=== PATIENT | female | born 1975 | race Caucasian/White ===

== ENCOUNTER 2017-06-30 20:08 | Emergency (ER) | payer BC, SELFPAY ==
[2017-06-30 20:09] VITALS: BP 121/80; PULSE 86; RESP 20; TEMP 36.7; O2SAT 100; BMI 19.8
--- NOTE | 2017-06-30 20:39 | ED.VISSUMM ---
- ER Visit Summary Date of Service: 06/30/17 Chief Complaint: Headache History of Present Illness: The patient is a 41 F patient complains of headache symptoms behind the right eye. History of occipital migraines. Similar presentation. Symptoms for the past 2 days. No photophobia or phonophobia. No visual changes. No nausea or vomiting. Stridor Imitrex and Fioricet with no relief. Has been seen in the ED with relief of migraine cocktail. No fevers, no head injuries. No other complaints. Physical Examination: General: Alert and oriented ?3, no acute distress HEENT: Normocephalic, atraumatic. Moist mucosa membranes Neck: supple, nontender. No meningismus Cardiovascular: Regular rate and rhythm, no murmurs Respiratory: Normal breath sounds, symmetric, no distress Abdomen: Soft, nontender, nondistended Extremities: Nontender, no edema, pulses intact ?4 Neuro: no focal neurological deficits. Test Results: [] Emergency Department Course and Treatment: Patient no focal neurological deficits. Treated with migraine cocktail with good relief. Discharged with outpatient follow-up. Treatment Plan: [] Disposition: Discharge Impression: 1. Cephalgia This note was generated with [employer] dictation software. It may contain incorrect words, spelling, and punctuation that were not noted in review of the chart prior to signing ED Disposition - Plan for ED Patient: Disposition: Home or Assisted Living Chief Complaint: Headache Diagnosis: Cephalgia Instructions: ED Cephalgia Unspecified Referrals: Silvino Herron MD [Primary Care Provider] - 3-5 Days
[2017-06-30] MEDS: DiphenhydrAMINE 50 MG/ML Syringe 25 MG IV (21:05)
[2017-06-30] MEDS: Ketorolac 30 MG/ML Syringe IV (21:05)
[2017-06-30] MEDS: proCHLORPERazine 10 MG/2 ML Vial IV (21:05)
[2017-06-30 22:06] VITALS: BP 127/88; PULSE 76; RESP 16; O2SAT 98
== END 2017-06-30 22:07 | disposition home or self-care (01) ==
PROVIDERS: Emergency Provider Emergency Medicine; Family Provider Family Medicine; PCP Family Medicine
DX: R51 Headache (principal)
CPT/HCPCS: 96361; 96374; 96375; 99283; J7040; A4216

== ENCOUNTER 2017-10-31 06:33 | Emergency (ER) | payer BC, SELFPAY ==
[2017-10-31 06:34] VITALS: BP 130/101; PULSE 74; RESP 18; TEMP 36.5; O2SAT 100; BMI 18.9
--- NOTE | 2017-10-31 06:49 | ED.VISSUMM ---
- ER Visit Summary Date of Service: 10/31/17 Chief Complaint: Acute headache History of Present Illness: The patient is a 42 F history of migraine headaches. Patient states on Tuesday she got gradual onset of a headache associated with nausea vomiting. It is right-sided behind her right eye. This is classic for 1 of her migraines. She denies any falls or head trauma. She denies any LOC. She is not on any blood thinners. She denies any fever or sinus congestion. She currently is out of her migraine medications at home Imitrex and Fioricet. She states the insurance company will only allow her to get 70 filled per month. Physical Examination: Young female no acute distress. Vital signs are stable and afebrile. She does not look septic or toxic. H EENT exam unremarkable. Pupils round reactive light. She is photophobic. No facial droop. Normal speech. No signs of trauma to her head or face. Neck nontender. No lymphadenopathy. No meningismus. Able to touch chin to chest. Lungs clear to auscultation bilaterally. Heart regular rhythm no murmur. Chest wall nontender. Abdomen soft nontender. Moving all 4 extremities. Neurovascular intact. 5 out of 5 shell reprint operator strength. Dorsi plantar flexion intact. Neurologically she is awake she is alert she is answering questions. She has no focal motor or sensory deficits. NIH score is 0. She is acting appropriately. Back exam nontender. Skin unremarkable no rashes. Test Results: None Emergency Department Course and Treatment: Patient has a history of migraines this is classic for 1 of her migraine headaches. She will be treated with normal saline IV fluid bolus, Phenergan IV, Benadryl IV and Toradol IV. This has worked for her in the past. Treatment Plan: Fluids and rest. Disposition: Discharge Impression: Acute cephalgia with a history of migraines This note was generated with [employer] dictation software. It may contain incorrect words, spelling, and punctuation that were not noted in review of the chart prior to signing ED Disposition - Plan for ED Patient: Chief Complaint: Headache Referrals: Silvino Herron MD [Primary Care Provider] -
--- NOTE | 2017-10-31 06:52 | ED.DCSUM_ITS ---
- ER Visit Summary Date of Service: 10/31/17 Chief Complaint: Acute headache History of Present Illness: The patient is a 42 F history of migraine headaches. Patient states on Tuesday she got gradual onset of a headache associated with nausea vomiting. It is right-sided behind her right eye. This is classic for 1 of her migraines. She denies any falls or head trauma. She denies any LOC. She is not on any blood thinners. She denies any fever or sinus congestion. She currently is out of her migraine medications at home Imitrex and Fioricet. She states the insurance company will only allow her to get 70 filled per month. Physical Examination: Young female no acute distress. Vital signs are stable and afebrile. She does not look septic or toxic. H EENT exam unremarkable. Pupils round reactive light. She is photophobic. No facial droop. Normal speech. No signs of trauma to her head or face. Neck nontender. No lymphadenopathy. No meningismus. Able to touch chin to chest. Lungs clear to auscultation bilaterally. Heart regular rhythm no murmur. Chest wall nontender. Abdomen soft nontender. Moving all 4 extremities. Neurovascular intact. 5 out of 5 coverer strength. Dorsi plantar flexion intact. Neurologically she is awake she is alert she is answering questions. She has no focal motor or sensory deficits. NIH score is 0. She is acting appropriately. Back exam nontender. Skin unremarkable no rashes. Test Results: None Emergency Department Course and Treatment: Patient has a history of migraines this is classic for 1 of her migraine headaches. She will be treated with normal saline IV fluid bolus, Phenergan IV, Benadryl IV and Toradol IV. This has worked for her in the past. Treatment Plan: Fluids and rest. Disposition: Discharge Impression: Acute cephalgia with a history of migraines This note was generated with [employer] dictation software. It may contain incorrect words, spelling, and punctuation that were not noted in review of the chart prior to signing ED Disposition - Plan for ED Patient: Chief Complaint: Headache Referrals: Silvino Herron MD [Primary Care Provider] -
--- NOTE | 2017-10-31 06:52 | ED.DEP ---
ED Disposition - Plan for ED Patient: Disposition: Home or Assisted Living Chief Complaint: Headache Instructions: ED Headache Migraine Referrals: Silvino Herron MD [Primary Care Provider] - As Needed Additional Instructions: Plenty of fluids and rest. Tylenol and/or Motrin for your headache. Refill your migraine medication prescriptions. Return if feeling worse.
[2017-10-31] MEDS: DiphenhydrAMINE 50 MG/ML Syringe 25 MG IV (06:55)
[2017-10-31] MEDS: proMETHazine 25 MG/ML Syringe 12.5 MG IV (06:55)
[2017-10-31] MEDS: Ketorolac 30 MG/ML Syringe IV (06:56)
[2017-10-31] MEDS: 0.9% Normal Saline 1,000 ML 1000 ML IV (06:56)
[2017-10-31 07:36] VITALS: BP 122/83; PULSE 61; RESP 16; O2SAT 100
== END 2017-10-31 07:45 | disposition home or self-care (01) ==
PROVIDERS: Emergency Provider Emergency Medicine; Family Provider Family Medicine; PCP Family Medicine
DX: G43.909 Migraine, unspecified, not intractable, without status migrainosus (principal)
CPT/HCPCS: 96361; 96374; 96375; 99283; J7030

== ENCOUNTER 2017-11-15 19:37 | Emergency (ER) | payer BC, OTHER, SELFPAY ==
[2017-11-15 19:38] VITALS: BP 123/69; PULSE 97; RESP 18; TEMP 37.1; O2SAT 97; BMI 18.9
--- NOTE | 2017-11-15 20:01 | ED.DCSUM_ITS ---
- ER Visit Summary Date of Service: 11/15/17 Chief Complaint: Pelvic pain secondary to left superior pubic rami fracture History of Present Illness: The patient is a 42 F who fell at work. She was seen at [facility] and diagnosed with a superior left pubic ramus fracture. She was discharged home with prescription for Naprosyn and crutches. She states the Naprosyn is not helping control her pain. She denies any paresthesia, anesthesia motors. She has no other complaints. She is requesting something to control her pain Physical Examination: Vital signs unremarkable. Patient appears uncomfortable. There is pain palpation left side of the pelvis. The pelvis is stable. Abdomen is soft nontender. DP and PT pulses are palpable left lower extremity. Movement of the left lower extremity causes discomfort in the inguinal area. Test Results: None Emergency Department Course and Treatment: Patient was treated with 4 mg of Zofran IV push and 6 mg of morphine IV push. She was reassessed. Based on medication required to control her pain will prescribe morphine IR. Treatment Plan: Opiate analgesia to control pain secondary to left superior pubic ramus fracture. Patient reports marked improvement after 6 mg of morphine. She was discharged home with prescription for morphine IR. She was told to take the Naprosyn that she was prescribed from the other facility. Disposition: Discharge to home with spouse in stable and improved condition Impression: Pelvic pain secondary to left superior pubic rami fracture This note was generated with [employer] dictation software. It may contain incorrect words, spelling, and punctuation that were not noted in review of the chart prior to signing ED Disposition - Plan for ED Patient: Disposition: Home or Assisted Living Chief Complaint: Lower Extremity Injury Instructions: ED Fx Pelvis Prescriptions: Morphine [Morphine IR] 15 mg PO Q6H PRN PRN 5 Days #20 tablet PRN Reason: pelvic pain Referrals: Silvino Herron MD [Primary Care Provider] - As Needed
[2017-11-15] MEDS: Ondansetron 4 MG/2 ML Vial IV (20:07)
[2017-11-15] MEDS: morphine 8 MG/ML Syringe 6 MG IV (20:08)
[2017-11-15 21:08] VITALS: BP 112/78; PULSE 76; RESP 17; O2SAT 98
--- NOTE | 2017-11-15 21:24 | ED.RN ---
medication sent to [facility] to be picked up. They care currently closed. Order given for 1 tablet home pack at this time
[2017-11-15] MEDS: oxyCODONE 5 MG Tablet 10 MG PO (21:29)
== END 2017-11-15 21:08 | disposition home or self-care (01) ==
PROVIDERS: Emergency Provider Emergency Medicine; Family Provider Family Medicine; PCP Family Medicine
DX: S32.512A Fracture of superior rim of left pubis, initial encounter for closed fracture (principal); W19.XXXA Unspecified fall, initial encounter; Y93.9 Activity, unspecified; Y92.9 Unspecified place or not applicable; Y99.0 Civilian activity done for income or pay
CPT/HCPCS: 96374; 96375; 99283; A4216; J2405

== ENCOUNTER → 2018-01-19 12:23 | Outpatient (CLI) | payer BC, SELFPAY ==
--- NOTE | 2018-01-19 12:25 | BI_ITS ---
MAMMOGRAPHY - BILATERAL SCREENING REASON FOR EXAM: Female, 42 years old. Routine annual screening examination. PERTINENT HISTORY: Non-contributory. TECHNIQUE: Digital bilateral breast remi (3D mammographic acquisition) in the CC and MLO projections. 2-D mediolateral oblique (MLO) and craniocaudad (CC) views of both breasts were obtained. CAD: Full Field Digital Mammography with Computer Added Detection was performed. COMPARISON: Comparison is made with prior study dated November 18, 2016. FINDINGS: Breast Composition: The breasts are heterogeneously dense, which may obscure small masses. There are no dominant masses or suspicious calcifications. No other significant abnormalities are identified. There has been no significant change since the prior study. BI/SCREENING MAMM (CAD), BILAT IMPRESSION: Stable bilateral screening mammogram. Yearly follow-up mammogram recommended. (A) ASSESSMENT CATEGORY: BIRADS Category 1: Negative. A letter regarding these results will be sent to the patient by the facility within 30 days. Approximately 10% of breast cancers are not detected by mammography. A normal mammogram should not delay biopsy of a clinically suspicious abnormality. [id number] Electronically Signed: Brian Mujica MD at 15:40 EDT Tel [phone], Service support ,
== END ==
PROVIDERS: Family Provider Family Medicine; PCP Family Medicine; Visit Provider Obstetrics & Gynecology
DX: Z12.31 Encounter for screening mammogram for malignant neoplasm of breast (principal)
CPT/HCPCS: 77063; 77067

== ENCOUNTER → 2018-01-30 13:08 | Outpatient (CLI) | payer BC, SELFPAY ==
[2018-01-30 13:41] LABS: Hematocrit 38.9 % (37-47); Mean Corp Hgb Conc 33.4 g/gl (32-36); Mean Corpuscular Hgb 30.2 pg (27.0-32.0); Mean Corpuscular Volume 90.5 fL (81-99); Mean Platelet Vol. 9.4 fl (6.2-12.0); Platelet Count 286 K/mm3 (150-450); RBC Distribution Width CV 12.6 % (11.6-14.6); Scan Indicated on CBC? Y/N NO; White Blood Count 3.3 K/mm3 (4.4-11.0)
[2018-01-30 13:57] LABS: Estradiol 235.5 pg/mL; Free T3 3.3 pg/mL (2.18-3.98); T4 Free Direct 0.98 ng/dL (0.76-1.46); Thyroid Stim Hormone (TSH) 0.67 uIU/mL (0.358-3.74)
[2018-01-30 13:59] LABS: Progesterone Level 0.07 ng/mL (See Comment)
[2018-01-30 14:15] LABS: Hemoglobin A1c 5.1 % (4.2-6.3)
[2018-01-30 16:51] LABS: Chlamydia Trachomatis by PCR Negative (Negative); Neisserai gonorrhoeae by PCR Negative (Negative); Probe Check PASS; Sample Adequacy Control PASS; Specimen Processing Control PASS
[2018-02-01 11:59] LABS: HPV Reflexed? NOT INDICATED
== END ==
PROVIDERS: Visit Provider Obstetrics & Gynecology
DX: Z12.4 Encounter for screening for malignant neoplasm of cervix (principal); Z11.3 Encounter for screening for infections with a predominantly sexual mode of transmission
CPT/HCPCS: 82670; 83036; 84144; 84403; 84439; 84443; 84481; 85027; 87491; 87591; 88175; G0145

== ENCOUNTER → 2018-01-30 18:06 | Outpatient (CLI) | payer BC, SELFPAY ==
--- NOTE | 2018-01-30 18:08 | US_ITS ---
STUDY: ULTRASOUND OF THE FEMALE PELVIS - COMPLETE REASON FOR EXAM: Female, 42 years old. Irregular menses x 3 months. History of section. LMP: January 08, 2018. TECHNIQUE: Transabdominal and Transvaginal. The patient was not prepped, so there was very limited visualization of the pelvic structures on transabdominal imaging. As such, endovaginal scanning was employed. TECHNICAL QUALITY: Adequate. COMPARISON: Pelvic ultrasound May 14, 2015. FINDINGS: The uterus is anteverted and is in a midline position. The uterus measures 7.4 x 5.3 x 3.8 cm. Normal uterine cervix. The endometrium measures 5 mm in thickness, and is hyperechoic. 2 rounded, incompletely defined heterogeneous lesions consistent with fibroids are seen in the uterine fundus, abutting or potentially extending into the upper endometrial cavity. At the midline, the fibroid is 13 x 13 x 12 mm. Another, to the left, is 17 x 16 x 17 mm. I.U.D. - The patient does not have an I.U.D. The right ovary is visualized. The right ovary measures 3.6 x 2.0 x 1.9 cm. There is a single subcentimeter follicle of the right ovary without a dominant cyst. There is no visualized right adnexal mass or complex lesion. There is normal arterial and normal venous vascularity. The left ovary is visualized. The left ovary measures 3.8 x 2.5 x 1.6 cm. There are a few follicles of the left ovary, including a dominant 1.5 x 1.4 x 1.1 cm follicular cyst. There is no visualized left adnexal mass or complex lesion. There is normal arterial and normal venous vascularity. There is no fluid in the cul-de-sac. Polycystic ovary disease: No. US/Transvaginal Non- IMPRESSION: 1. 2 fundal uterine fibroids again seen abutting, if not extending into the upper endometrial cavity. The endometrium is otherwise unremarkable. 2. Follicular cysts in the ovaries. A 1.5 cm dominant follicle is noted on the left. Electronically Signed: Kin Carbajal MD at 19:17 EDT , Service support ,
== END ==
PROVIDERS: Visit Provider Obstetrics & Gynecology
DX: D25.9 Leiomyoma of uterus, unspecified (principal); N83.02 Follicular cyst of left ovary; N83.01 Follicular cyst of right ovary; N93.8 Other specified abnormal uterine and vaginal bleeding; R10.2 Pelvic and perineal pain
CPT/HCPCS: 76830; 93976

== ENCOUNTER → 2018-04-14 12:27 | Outpatient (CLI) | payer SELFPAY ==
[2018-04-14 13:54] LABS: Estradiol 58.3 pg/mL
[2018-04-14 14:19] LABS: Progesterone Level 19.53 ng/mL (See Comment)
--- OUTSIDE RECORDS SUMMARY | 2018-05-31 07:05 | XMS RPT_ITS ---
:1975 Author Organization OHIP Care Team Providers Name Role Phone Jacinda Barrow Attending Unavailable Jacinda Barrow Referring Unavailable Primay Care Physicia, No Primary Care Unavailable Silvino Herron Primary Care Unavailable Jonathan Mittal Attending Unavailable Silvino Herron Primary Care Unavailable Aleksandar Mendenhall Attending Unavailable Gopal, Silvino Primary Care Unavailable Golden, Claus Attending Unavailable Jacinda Barrow Attending Unavailable Gopal, Silvino Primary Care Unavailable Jacinda Barrow Attending Unavailable Jacinda Barrow Attending Unavailable Primay Care Physicia, No Primary Care Unavailable Ruth Gabriel Attending Unavailable Gopal, Silvino A Primary Care Unavailable TRUONG, CARLOS Attending Unavailable TRUONG, CARLOS Primary Care Unavailable ALEXI, CARLOS Primary Care Unavailable HILARIO RUSSO MD Attending Unavailable PROBLEMS PROBLEMS DATE TYPE CONDITION / ATTENDING STATUS SOURCE CODE 01/17/2018 Admitting Unknown / [facility] Repository 11/15/2017 Unknown S32.512A - Golden, Claus Active [facility] left pubis, Repository initial encounter for closed fracture / S32.512A(ICD-10 ) PROCEDURES PROCEDURES No Procedure Records FoundRESULTS RESULTS ESTRADIOL Collected: 04/14/2018 Status: F Source: [place] 12:33 PM [facility] REPOSITORY TYPE CODE TESTS RESULT OUT OF RANGE REFERENCE UNITS LAB L3300.1750 pg/mL Normal ESTRADIOL 58.3 Result Comment: NORMAL REFERENCE RANGES FEMALE FOLLICULAR 21.4 - 164.8 pg/mL MID-CYCLE PEAK 49.9 - 367.2 pg/mL LUTEAL 40.2 - 259.0 pg/mL POST-MENOPAUSAL ON MHT <11.0 - 462.1 pg/mL NOT ON MHT <11.0 - 58.3 pg/mL MALE <11.0 - 52.5 pg/mL NOTE: [facility] HAS CONFIRMED THE DRUG FULVETRANT (FASLODEX) MAY CAUSE FALSELY ELEVATED ESTRADIOL RESULTS WHEN USING THIS TEST METHOD. IF PATIENT IS TAKING FULVESTRANT AN ALTERNATIVE METHOD SHOULD BE USED TO DETERMINE ESTRADIOL CONCENTRATION. Performed By: #### L3300.1750 #### [facility] [address] [place], [place], [address] PROGESTERONE LEVEL Collected: 04/14/2018 Status: F Source: [place] 12:33 PM [facility] REPOSITORY TYPE CODE TESTS RESULT OUT OF REFERENCE UNITS RANGE LAB L509.4001 See Comment ng/mL Progesterone Normal 19.53 Result Comment: Progesterone Reference Table: UNITS Female: Follicular 0.15 - 1.40 ng/mL Luteal 3.34 - 25.56 ng/mL Mid-luteal 4.44 - 28.03 ng/mL Postmenopausal 0.0 - 0.73 ng/mL : 1st Trimester 11.22 - 90.00 ng/mL 2nd Trimester 25.55 - 89.40 ng/mL 3rd Trimester 48.40 -422.50 ng/mL Performed By: #### L509.4001 #### [facility] [address] [place], [address] TRANSVAGINAL Observed: 01/30/2018 Status: F Source: [place] NON- 6:09 PM [facility] REPOSITORY [facility] Imaging Services [address] [place] [address] Transvaginal Non- MR#: [id number] Acct: [id number] Name: FATIMAH DOLL Rep #: [id number] : 1975 F 42 From: Fuad Carbajal MD PCP: Care Physician, No Primary Status: REG CLI Study: Transvaginal Non- Date of Exam: 01/30/18 Exam# [id number] Ordering Dr: Jacinda Barrow MD STUDY: ULTRASOUND OF THE FEMALE PELVIS - COMPLETE REASON FOR EXAM: Female, 42 years old. Irregular menses x 3 months. History of section. LMP: January 08, 2018. TECHNIQUE: Transabdominal and Transvaginal. The patient was not prepped, so there was very limited visualization of the pelvic structures on transabdominal imaging. As such, endovaginal scanning was employed. TECHNICAL QUALITY: Adequate. COMPARISON: Pelvic ultrasound May 14, 2015. FINDINGS: The uterus is anteverted and is in a midline position. The uterus measures 7.4 x 5.3 x 3.8 cm. Normal uterine cervix. The endometrium measures 5 mm in thickness, and is hyperechoic. 2 rounded, incompletely defined heterogeneous lesions consistent with fibroids are seen in the uterine fundus, abutting or potentially extending into the upper endometrial cavity. At the midline, the fibroid is 13 x 13 x 12 mm. Another, to the left, is 17 x 16 x 17 mm. I.U.D. - The patient does not have an I.U.D. The right ovary is visualized. The right ovary measures 3.6 x 2.0 x 1.9 cm. There is a single subcentimeter follicle of the right ovary without a dominant cyst. There is no visualized right adnexal mass or complex lesion. There is normal arterial and normal venous vascularity. The left ovary is visualized. The left ovary measures 3.8 x 2.5 x 1.6 cm. There are a few follicles of the left ovary, including a dominant 1.5 x 1.4 x 1.1 cm follicular cyst. There is no visualized left adnexal mass or complex lesion. There is normal arterial and normal venous vascularity. There is no fluid in the cul-de-sac. Polycystic ovary disease: No. US/Transvaginal Non- IMPRESSION: 1. 2 fundal uterine fibroids again seen abutting, if not extending into the upper endometrial cavity. The endometrium is otherwise unremarkable. 2. Follicular cysts in the ovaries. A 1.5 cm dominant follicle is noted on the left. Electronically Signed: Kin Carbajal MD at 19:17 EDT , Service support , CC: No Primary Care Physician; Jacinda Barrow MD Carpentry Teacher: Signed CBC-COMPLETE BLOOD CNT Collected: 01/30/2018 Status: F Source: [place] NO DIFF 12:30 PM [facility] REPOSITORY TYPE CODE TESTS RESULT OUT OF RANGE REFERENCE UNITS LAB L100.1000 4.4-11.0 K/mm3 Low WBC 3.3 LAB L100.1200 4.2-5.4 M/mm3 Normal RBC 4.30 LAB L100.1300 12.0-15.0 g/dl Normal HGB 13.0 LAB L100.1400 37-47 % Normal HCT 38.9 LAB L100.1500 81-99 fL Normal MCV 90.5 LAB L100.1600 27.0-32.0 pg Normal MCH 30.2 LAB L100.1700 32-36 g/gl Normal MCHC 33.4 LAB L100.1810 11.6-14.6 % Normal RDW CV 12.6 LAB L100.1820 35.1-43.9 fl Normal RDW SD 41.0 LAB L100.1900 150-450 K/mm3 Normal PLT 286 LAB L100.2000 6.2-12.0 fl Normal MPV 9.4 Performed By: #### L100.0500 #### [facility] [address] [place], [address] FREE T3 Collected: 01/30/2018 Status: F Source: [place] 12:30 PM [facility] REPOSITORY TYPE CODE TESTS RESULT OUT OF RANGE REFERENCE UNITS LAB L501.86229 2.18-3.98 pg/mL Normal FREE T3 3.3 Performed By: #### L501.52995, L501.9520, L506.0400, L3300.1750 #### [facility] [address] [place], [place], [id number] THYROID STIM HORMONE Collected: 01/30/2018 Status: F Source: [place] (TSH) 12:30 PM [facility] REPOSITORY TYPE CODE TESTS RESULT OUT OF RANGE REFERENCE UNITS LAB L501.9520 0.358-3.74 uIU/mL Normal TSH 0.67 Performed By: #### L501.97464, L501.9520, L506.0400, L3300.1750 #### [facility] [address] [place], [address] T4 FREE DIRECT Collected: 01/30/2018 Status: F Source: [place] 12:30 PM [facility] REPOSITORY TYPE CODE TESTS RESULT OUT OF RANGE REFERENCE UNITS LAB L506.0400 0.76-1.46 ng/dL Normal T4 FREE 0.98 DIRECT Performed By: #### L501.22269, L501.9520, L506.0400, L3300.1750 #### [facility] [address] [place], [address] ESTRADIOL Collected: 01/30/2018 Status: F Source: [place] 12:30 PM [facility] REPOSITORY TYPE CODE TESTS RESULT OUT OF RANGE REFERENCE UNITS LAB L3300.1750 pg/mL Normal ESTRADIOL 235.5 Result Comment: NORMAL REFERENCE RANGES FEMALE FOLLICULAR 21.4 - 164.8 pg/mL MID-CYCLE PEAK 49.9 - 367.2 pg/mL LUTEAL 40.2 - 259.0 pg/mL POST-MENOPAUSAL ON MHT <11.0 - 462.1 pg/mL NOT ON MHT <11.0 - 58.3 pg/mL MALE <11.0 - 52.5 pg/mL NOTE: [facility] HAS CONFIRMED THE DRUG FULVETRANT (FASLODEX) MAY CAUSE FALSELY ELEVATED ESTRADIOL RESULTS WHEN USING THIS TEST METHOD. IF PATIENT IS TAKING FULVESTRANT AN ALTERNATIVE METHOD SHOULD BE USED TO DETERMINE ESTRADIOL CONCENTRATION. Performed By: #### L501.97390, L501.9520, L506.0400, L3300.1750 #### [facility] [address] [place], [place], [address] TESTOSTERONE, SERUM TOTAL Collected: 01/30/2018 Status: F Source: [place] 12:30 PM [facility] REPOSITORY TYPE CODE TESTS RESULT OUT OF REFERENCE UNITS RANGE LAB L509.3000 ng/dL Testosterone Normal 11.37 Result Comment: NORMAL REFERENCE RANGES MALE AGE <50 123.06 - 813.86 ng/dL MALE AGE >50 89.98 - 780.10 ng/dL FEMALE PREMENOPAUSE AGE 21 - 60 9.01 - 47.94 ng/dL FEMALE POSTMENOPAUSE AGE 45 - 89 <7.00 - 45.62 ng/dL REFERENCE RANGE AND METHODOLOGY CHANGED 04/20/2017 Performed By: #### L509.3000, L509.4001 #### [facility] [address] [place], [address] PROGESTERONE LEVEL Collected: 01/30/2018 Status: F Source: [place] 12:30 PM [facility] REPOSITORY TYPE CODE TESTS RESULT OUT OF REFERENCE UNITS RANGE LAB L509.4001 See Comment ng/mL Progesterone Normal 0.07 Result Comment: Progesterone Reference Table: UNITS Female: Follicular 0.15 - 1.40 ng/mL Luteal 3.34 - 25.56 ng/mL Mid-luteal 4.44 - 28.03 ng/mL Postmenopausal 0.0 - 0.73 ng/mL : 1st Trimester 11.22 - 90.00 ng/mL 2nd Trimester 25.55 - 89.40 ng/mL 3rd Trimester 48.40 -422.50 ng/mL Performed By: #### L509.3000, L509.4001 #### [facility] [address] [place], [address] HEMOGLOBIN A1C Collected: 01/30/2018 Status: F Source: [place] 12:30 PM [facility] REPOSITORY TYPE CODE TESTS RESULT OUT OF RANGE REFERENCE UNITS LAB L501.9985 4.2-6.3 % Normal HGB A1C 5.1 Performed By: #### L501.9985 #### [facility] [address] [place], [address] CT/NG WCH BY PCR Collected: 01/30/2018 Status: F Source: [place] 12:00 PM [facility] REPOSITORY TYPE CODE TESTS RESULT OUT OF RANGE REFERENCE UNITS LAB L8200.2100 Negative Normal Chlam Negative Trac PCR LAB L8200.2200 Negative Normal NG by Negative PCR Performed By: #### L8200.2000 #### [facility] [address] [place], [address] PAP I-G W/RFX HRHPV Collected: 01/30/2018 Status: F Source: [place] 12:00 PM [facility] REPOSITORY Order Comment: CYTOLOGY INFORMATION: - CLINICAL INFORMATION: - DATE LMP/MENOPAUSE: 01/08/2018 LMP - COLLECTION VIAL: Thin Prep Vial - SMALL ANIMAL CARETAKER SOURCE: CERVICAL/ENDOCERVICAL - COLLECTION TECHNIQUE: BRUSH/SPATULA Specimen Comment: [id number] Specimen Comment: Source.............Cervix Specimen Comment: LMP / Prev Treat...[id number] Specimen Comment: No. of containers..01 ThinPrep Vial TYPE CODE TESTS RESULT OUT OF RANGE REFERENCE UNITS LAB L7400.0800 . Normal DIAGN Comment Result Comment: NEGATIVE FOR INTRAEPITHELIAL LESION AND MALIGNANCY. LAB L7400.0900 . Normal ADEQ Comment Result Comment: Satisfactory for evaluation. No endocervical component is identified. LAB L7400.1400 . Normal PERFORM Comment Result Comment: Aniyah Collins Dubbing Machine Operator (ASCP) LAB L7400.8793 . Normal TEST METHOD Comment Result Comment: This liquid based ThinPrep(R) pap test was screened with the use of an image guided system. LAB L7400.2600 . Normal . COMM LAB L7400.2700 . Normal PAPSMR Comment Result Comment: The Pap smear is a screening test designed to aid in the detection of premalignant and malignant conditions of the uterine cervix. It is not a diagnostic procedure and should not be used as the sole means of detecting cervical cancer. Both false-positive and false-negative reports do occur. LAB L7400.2800 . Normal HPV RFLX Comment Result Comment: The HPV DNA reflex criteria were not met with this specimen result therefore, no HPV testing was performed. Performed at: - [facility] [id number] [employer] Tank Erector: Estephania Naylor MD, Phone: [phone] Performed By: #### L7400.0350 #### [facility] (refer to report for specific site) refer to report for address and phone number SCREENING MAMM (CAD), Observed: 01/19/2018 Status: F Source: [facility] 12:25 PM [facility] REPOSITORY [facility] Imaging Services [address] [place] [address] SCREENING MAMM (CAD), [facility] MR#: [id number] Acct: [id number] Name: FATIMAH DOLL Rep #: [id number] : 1975 F 42 From: Brian Mujica MD PCP: Silvino Herron MD Status: [facility] Study: SCREENING MAMM (CAD), BILAT Date of Exam: 01/19/18 Exam# [id number] Ordering Dr: Jacinda Barrow MD MAMMOGRAPHY - BILATERAL SCREENING REASON FOR EXAM: Female, 42 years old. Routine annual screening examination. PERTINENT HISTORY: Non-contributory. TECHNIQUE: Digital bilateral breast remi (3D mammographic acquisition) in the CC and MLO projections. 2-D mediolateral oblique (MLO) and craniocaudad (CC) views of both breasts were obtained. CAD: Full Field Digital Mammography with Computer Added Detection was performed. COMPARISON: Comparison is made with prior study dated November 18, 2016. FINDINGS: Breast Composition: The breasts are heterogeneously dense, which may obscure small masses. There are no dominant masses or suspicious calcifications. No other significant abnormalities are identified. There has been no significant change since the prior study. BI/SCREENING MAMM (CAD), BILAT IMPRESSION: Stable bilateral screening mammogram. Yearly follow-up mammogram recommended. (A) ASSESSMENT CATEGORY: BIRADS Category 1: Negative. A letter regarding these results will be sent to the patient by the facility within 30 days. Approximately 10% of breast cancers are not detected by mammography. A normal mammogram should not delay biopsy of a clinically suspicious abnormality. [id number] Electronically Signed: Brian Mujica MD at 15:40 EDT Tel [phone], Service support , CC: Jacinda Barrow MD; Silvino Herron MD Carpentry Teacher: Signed EMERGENCY DEPARTMENT Observed: 11/15/2017 Status: F Source: [place] SUMMARY 8:57 PM [facility] REPOSITORY [facility] Medical Records Department [address] [place] [address] Emergency Department Summary 11/15/171958 MR#: [id number] Acct: [id number] Name: FATIMAH DOLL Rep #: [id number] : 1975 42 From: Claus Golden MD PCP: Silvino Herron MD Status: REG ER - ER Visit Summary Date of Service: 11/15/17 Chief Complaint: Pelvic pain secondary to left superior pubic rami fracture History of Present Illness: The patient is a 42 F who fell at work. She was seen at [facility] and diagnosed with a superior left pubic ramus fracture. She was discharged home with prescription for Naprosyn and crutches. She states the Naprosyn is not helping control her pain. She denies any paresthesia, anesthesia motors. She has no other complaints. She is requesting something to control her pain Physical Examination: Vital signs unremarkable. Patient appears uncomfortable. There is pain palpation left side of the pelvis. The pelvis is stable. Abdomen is soft nontender. DP and PT pulses are palpable left lower extremity. Movement of the left lower extremity causes discomfort in the inguinal area. Test Results: None Emergency Department Course and Treatment: Patient was treated with 4 mg of Zofran IV push and 6 mg of morphine IV push. She was reassessed. Based on medication required to control her pain will prescribe morphine IR. Treatment Plan: Opiate analgesia to control pain secondary to left superior pubic ramus fracture. Patient reports marked improvement after 6 mg of morphine. She was discharged home with prescription for morphine IR. She was told to take the Naprosyn that she was prescribed from the other facility. Disposition: Discharge to home with spouse in stable and improved condition Impression: Pelvic pain secondary to left superior pubic rami fracture This note was generated with [employer] dictation software. It may contain incorrect words, spelling, and punctuation that were not noted in review of the chart prior to signing ED Disposition - Plan for ED Patient: Disposition: Home or Assisted Living Chief Complaint: Lower Extremity Injury Instructions: ED Fx Pelvis Prescriptions: Morphine [Morphine IR] 15 mg PO Q6H PRN PRN 5 Days #20 tablet PRN Reason: pelvic pain Referrals: Silvino Herron MD [Primary Care Provider] - As Needed What to do if you have Problems For any increased pain, shortness of breath, bleeding, nausea or vomiting, chest pain, or any unexpected problems, contact your Primary Care Provider. Call [facility] ([phone]) or report to the closest Emergency Room. Call 911 if necessary. 11/15/172056 <Electronically signed by Claus Golden MD> Date Claus Golden MD Cosigner Signature (If Indicated): Date CC: Silvino Herron MD XR HIP LEFT W/PELVIS Observed: 11/15/2017 Status: F Source: [facility] 4 VIEWS 1:20 PM [facility] REPOSITORY ORIGINAL XR HIP LEFT W/PELVIS 4 VIEWS CLINICAL STATEMENT: pain. COMPARISON: None FINDINGS: A minimally displaced fracture is identified through the LEFT superior pubic ramus. No additional fracture or dislocation is identified. The hip joint spaces are maintained. IMPRESSION: LEFT superior pubic ramus fracture. Interpreted By: Leigh Godinez MD Preliminary Report By: Leigh Godinez MD Electronically Signed By: Leigh Godinez MD Dictated Date: 11/15/2017 1:32:01 PM Prelim Date: 11/15/2017 1:32:01 PM Sign Date: 11/15/2017 1:33:[address] ABD/PELVIS W/ IV Observed: 11/15/2017 Status: F Source: [facility] CONTRAST ONLY 1:15 PM [facility] REPOSITORY ORIGINAL CT ABD/PELVIS W/ IV CONTRAST ONLY This exam was performed according to our departmental dose optimization program, and includes the following measures where applicable: automated exposure control, adjustment of the mAs and/or kVp accord ing to patient size and/or exam, and an iterative reconstruction algorithm. CLINICAL STATEMENT: pain; trauma patient COMPARISON: None FINDINGS: There is slight atelectasis within the lung bases. There is subcentimeter hepatic hypodensity, too small to characterize. There is intra and extrahepatic biliary ductal dilation, of uncertain etiology. The gallbladder is unremarkable. There is mild prominence of the pancreatic duct, measuring approximately 5 mm. A pancreatic mass lesion is not visualized. The spleen and adrenal glands are un remarkable. There is symmetric enhancement of the kidneys. 1.5 cm RIGHT renal cyst is demonstrated. The stomach is not distended. The abdominal aorta is normal in caliber. Small and large bowel is normal in caliber. The appendix is not inflamed. Moderate stool burden is present. There is minimal pelvi c free fluid, perhaps physiologic. The bladder and uterus are unremarkable. There is nondisplaced LEFT superior pubic ramus fracture. The LEFT hip appears intact. No other acute fractures are identified. IMPRESSION: 1. Nondisplaced fracture of the LEFT superior pubic ramus. No significant pelvic hematoma formation. 2. Intra- and extrahepatic biliary ductal dilation. Mild prominence of pancreatic duct. No obvious pancreatic head lesion. Presence of an ampullary lesion is not excluded. Interpreted By: Starr Holloway MD Preliminary Report By: Starr Holloway MD Electronically Signed By: Starr Holloway MD Dictated Date: 11/15/2017 1:47:00 PM Prelim Date: 11/15/2017 1:47:00 PM Sign Date: 11/15/2017 1:52:18 PM UA Collected: 11/15/2017 Status: F Source: [facility] 12:47 PM [facility] REPOSITORY TYPE CODE TESTS RESULT OUT OF RANGE REFERENCE UNITS LAB SPCUA(SUKH NC) UA Specimen Type Clean Catch LAB CLRUA(SUKH NC) UA Color Yellow LAB APPUA(SUKH Clear NC) UA Appear Clear LAB SGUA(LOIN C) UA Spec Unknown Grav 1.005 LAB GLUA(LOIN Negative mg/dL C) UA Glucose Negative LAB BILUA(SUKH Negative NC) UA Bili Negative LAB KETUA(SUKH Negative mg/dL NC) UA Ketones Negative LAB BLDUA(SUKH Negative NC) UA Blood Negative LAB PHUA(LOIN C) UA pH 7.0 LAB PROUA(SUKH Negative mg/dL NC) UA Protein Negative LAB UROUA(SUKH E.U./dL NC) UA Urobilinogen 0.2 LAB NITUA(SUKH Negative NC) UA Nitrite Negative LAB LEUUA(SUKH Negative NC) UA Leuk Est Negative Performed By: #### UA, UAMICAO #### [address] [address] .URINALYSIS MICROSCOPIC Collected: 11/15/2017 Status: F Source: [facility] 12:47 PM [facility] EMERGENCY DEPARTMENT REPOSITORY TYPE CODE TESTS RESULT OUT OF REFERENCE UNITS RANGE LAB WBCUA(LOIN None Seen /hpf C) UA WBC None Seen LAB RBCUA(LOIN None Seen /hpf C) UA RBC None Seen LAB EPIUA(LOIN None Seen /hpf C) UA Squam Epithelial None Seen Performed By: #### UA, UAMICAO #### [address] [address] GEL ABO Collected: 11/15/2017 Status: F Source: [facility] 12:28 [facility] REPOSITORY TYPE CODE TESTS RESULT OUT OF RANGE REFERENCE UNITS LAB ABORH(LOINC ) Unknown ABO/Rh A POS Interp Performed By: #### CBC, ADIFF, ANEU, BMP, JANNA, GFR, ABOG, ANSG #### [address] [address] GEL ABS Collected: 11/15/2017 Status: F Source: [facility] 12:28 PM [facility] REPOSITORY TYPE CODE TESTS RESULT OUT OF REFERENCE UNITS RANGE LAB [facility] Antibody Negative ABSC Screen Gel Performed By: #### CBC, ADIFF, ANEU, BMP, JANNA, GFR, ABOG, ANSG #### [address] [place], [place] [address] CBC Collected: 11/15/2017 Status: F Source: [facility] 12:20 PM [facility] REPOSITORY TYPE CODE TESTS RESULT OUT OF REFERENCE UNITS RANGE LAB WBC(LOINC) 4.60-10.80 10 3/mcL WBC 5.60 LAB RBCCT(LOINC 4.20-5.40 10 6/mcL ) RBC 4.41 LAB HGB(LOINC) 12.0-16.0 G/dL Hgb 13.5 LAB HCT(LOINC) 37.0-47.0 % Hct 39.5 LAB MCV(LOINC) 80.0-94.0 fL MCV 89.7 LAB MCH(LOINC) 27.0-31.2 pg MCH 30.5 LAB MCHC(LOINC) 33.0-37.0 G/dL MCHC 34.0 LAB RDW(LOINC) 11.5-14.5 % RDW 13.3 LAB PLT(LOINC) 130-400 10 3/mcL Platelet 309 LAB MPV(LOINC) 7.4-10.4 fL Low MPV 6.8 Performed By: #### CBC, ADIFF, ANEU, BMP, JANNA, GFR, ABOG, ANSG #### [address] [place], [place] [address] .AUTO DIFF Collected: 11/15/2017 Status: F Source: [facility] 12:20 PM [facility] REPOSITORY TYPE CODE TESTS RESULT OUT OF REFERENCE UNITS RANGE LAB MARCIA(LOINC) 37.0-80.0 % Neutrophil % 67.8 LAB LYM(LOINC) 10.0-50.0 % Lymphocyte % 22.6 LAB MON(LOINC) 1.7-13.0 % Monocyte % 6.3 LAB EO(LOINC) 0.0-7.0 % Eosinophil % 2.9 LAB BAS(LOINC) 0.0-2.5 % Basophil % 0.4 LAB ABLYM(LOIN 0.77-3.85 10 3/mcL C) Lymphocyte, 1.30 Absolute LAB DARIN(LOINC 0.15-1.00 10 3/mcL ) Monocyte, 0.40 Absolute LAB AEOS(LOINC 0.00-0.40 10 3/mcL ) Eosinophil, 0.20 Absolute LAB ABAS(LOINC 0.00-0.19 10 3/mcL ) Basophil, 0.00 Absolute Performed By: #### CBC, ADIFF, ANEU, BMP, JANNA, GFR, ABOG, ANSG #### [address] [address] .NEUABS Collected: 11/15/2017 Status: F Source: [facility] 12:20 PM [facility] REPOSITORY TYPE CODE TESTS RESULT OUT OF REFERENCE UNITS RANGE LAB ANEU(LOINC) 2.85-6.16 10 3/mcL Neutrophil, 3.80 Absolute Performed By: #### CBC, ADIFF, ANEU, BMP, JANNA, GFR, ABOG, ANSG #### [address] [address] BMP Collected: 11/15/2017 Status: F Source: [facility] 12:20 PM [facility] REPOSITORY TYPE CODE TESTS RESULT OUT OF REFERENCE UNITS RANGE LAB GLU(LOINC) 70-105 mg/dL Glucose High Level 109 LAB NA(LOINC) 136-146 mEq/L Sodium Level 142 LAB K(LOINC) 3.5-5.1 mEq/L Potassium Level 4.6 LAB CL(LOINC) 98-107 mEq/L Chloride 104 LAB CO2(LOINC) 22-29 mEq/L CO2 High 30 LAB EBAL(LOINC mEq/L ) Electrolyte Balance 8.0 LAB BUN(LOINC) 7.0-18.0 mg/dL BUN 10.8 LAB CRE(LOINC) 0.6-1.2 mg/dL Creatinine Lvl (s) 0.6 LAB BC(LOINC) 7-27 ratio BUN/Creatinine 18 Ratio LAB CA(LOINC) 8.4-10.2 mg/dL Calcium Lvl 9.5 Performed By: #### CBC, ADIFF, ANEU, BMP, JANNA, GFR, ABOG, ANSG #### [address] [place], [place] [address] JANNA Collected: 11/15/2017 Status: F Source: [facility] 12:20 PM [facility] REPOSITORY TYPE CODE TESTS RESULT OUT OF REFERENCE UNITS RANGE LAB JANNA(LOINC) 24-125 IU/L Amylase Level 60 Performed By: #### CBC, ADIFF, ANEU, BMP, JANNA, GFR, ABOG, ANSG #### Mercedes Garfield [address] [place], [place] [address] .GFR Collected: 11/15/2017 Status: F Source: [facility] 12:20 PM [facility] REPOSITORY TYPE CODE TESTS RESULT OUT OF REFERENCE UNITS RANGE LAB GFRAA(LOINC ml/min/1.73 ) sqm GFR >60 Mexican Result Comment: GFR Population mean for , Non- Americans Ages 20-29 = 116 mL/min/1.73 sq.m. Ages 30-39 = 107 mL/min/1.73 sq.m. Ages 40-49 = 99 mL/min/1.73 sq.m. Ages 50-59 = 93 mL/min/1.73 sq.m. Ages 60-69 = 85 mL/min/1.73 sq.m. Ages 70+ = 75 mL/min/1.73 sq.m. Chronic Kidney Disease: Less than 60 mL/min/1.73 square meters End Stage Renal Disease: Less than 15 mL/min/1.73 square meters LAB GFRNO(LOINC) ml/min/1.73sqm GFR Non- >60 Result Comment: GFR Population mean for , Non- Americans Ages 20-29 = 116 mL/min/1.73 sq.m. Ages 30-39 = 107 mL/min/1.73 sq.m. Ages 40-49 = 99 mL/min/1.73 sq.m. Ages 50-59 = 93 mL/min/1.73 sq.m. Ages 60-69 = 85 mL/min/1.73 sq.m. Ages 70+ = 75 mL/min/1.73 sq.m. Chronic Kidney Disease: Less than 60 mL/min/1.73 square meters End Stage Renal Disease: Less than 15 mL/min/1.73 square meters Performed By: #### CBC, ADIFF, ANEU, BMP, JANNA, GFR, ABOG, ANSG #### Mercedes Garfield [address] [place], [place] [address] EMERGENCY DEPARTMENT Observed: 10/31/2017 Status: F Source: [place] SUMMARY 6:59 AM [facility] REPOSITORY [facility] Medical Records Department [address] [place] [address] Emergency Department Summary 10/31/17 0649 MR#: [id number] Acct: [id number] Name: FATIMAH DOLL Rep #: [id number] : 1975 42 From: Aleksandar Mendenhall MD PCP: Silvino Herron MD Status: PRE ER - ER Visit Summary Date of Service: 10/31/17 Chief Complaint: Acute headache History of Present Illness: The patient is a 42 F history of migraine headaches. Patient states on Tuesday she got gradual onset of a headache associated with nausea vomiting. It is right-sided behind her right eye. This is classic for 1 of her migraines. She denies any falls or head trauma. She denies any LOC. She is not on any blood thinners. She denies any fever or sinus congestion. She currently is out of her migraine medications at home Imitrex and Fioricet. She states the insurance company will only allow her to get 70 filled per month. Physical Examination: Young female no acute distress. Vital signs are stable and afebrile. She does not look septic or toxic. H EENT exam unremarkable. Pupils round reactive light. She is photophobic. No facial droop. Normal speech. No signs of trauma to her head or face. Neck nontender. No lymphadenopathy. No meningismus. Able to touch chin to chest. Lungs clear to auscultation bilaterally. Heart regular rhythm no murmur. Chest wall nontender. Abdomen soft nontender. Moving all 4 extremities. Neurovascular intact. 5 out of 5 rotor assembler strength. Dorsi plantar flexion intact. Neurologically she is awake she is alert she is answering questions. She has no focal motor or sensory deficits. NIH score is 0. She is acting appropriately. Back exam nontender. Skin unremarkable no rashes. Test Results: None Emergency Department Course and Treatment: Patient has a history of migraines this is classic for 1 of her migraine headaches. She will be treated with normal saline IV fluid bolus, Phenergan IV, Benadryl IV and Toradol IV. This has worked for her in the past. Treatment Plan: Fluids and rest. Disposition: Discharge Impression: Acute cephalgia with a history of migraines This note was generated with [employer] dictation software. It may contain incorrect words, spelling, and punctuation that were not noted in review of the chart prior to signing ED Disposition - Plan for ED Patient: Chief Complaint: Headache Referrals: Silvino Herron MD [Primary Care Provider] - What to do if you have Problems For any increased pain, shortness of breath, bleeding, nausea or vomiting, chest pain, or any unexpected problems, contact your Primary Care Provider. Call [facility] ([phone]) or report to the closest Emergency Room. Call 911 if necessary. 10/31/17 0659 <Electronically signed by Aleksandar Mendenhall MD> Date Aleksandar Mendenhall MD Cosigner Signature (If Indicated): Date CC: Silvino Herron MD DISCHARGE INSTRUCTION Observed: 10/31/2017 Status: F Source: [place] 6:59 AM [facility] REPOSITORY [facility] Medical Records Department [address] [place] [address] Discharge Instruction 10/31/17 0652 MR#: [id number] Acct: [id number] Name: FATIMAH DOLL Rep #: [id number] : 1975 42 From: Aleksandar Mendenhall MD PCP: Silvino Herron MD Status: PRE ER ED Disposition - Plan for ED Patient: Disposition: Home or Assisted Living Chief Complaint: Headache Instructions: ED Headache Migraine Referrals: Silvino Herron MD [Primary Care Provider] - As Needed Additional Instructions: Plenty of fluids and rest. Tylenol and/or Motrin for your headache. Refill your migraine medication prescriptions. Return if feeling worse. What to do if you have Problems For any increased pain, shortness of breath, bleeding, nausea or vomiting, chest pain, or any unexpected problems, contact your Primary Care Provider. Call [facility] ([phone]) or report to the closest Emergency Room. Call 911 if necessary. 10/31/17 0659 <Electronically signed by Aleksandar Mendenhall MD> Date Aleksandar Mendenhall MD Cosigner Signature (If Indicated): Date CC: Silvino Herron MD EMERGENCY DEPARTMENT Observed: 06/30/2017 Status: F Source: [place] SUMMARY 9:44 PM [facility] REPOSITORY [facility] Medical Records Department [address] [place] [address] Emergency Department Summary 06/30/179 MR#: [id number] Acct: [id number] Name: FATIMAH DOLL Flavio Rep #: [id number] : 1975 41 From: Jonathan Yoon PCP: Silvino Herron Status: REG ER - ER Visit Summary Date of Service: 06/30/17 Chief Complaint: Headache History of Present Illness: The patient is a 41 F patient complains of headache symptoms behind the right eye. History of occipital migraines. Similar presentation. Symptoms for the past 2 days. No photophobia or phonophobia. No visual changes. No nausea or vomiting. Stridor Imitrex and Fioricet with no relief. Has been seen in the ED with relief of migraine cocktail. No fevers, no head injuries. No other complaints. Physical Examination: General: Alert and oriented 3, no acute distress HEENT: Normocephalic, atraumatic. Moist mucosa membranes Neck: supple, nontender. No meningismus Cardiovascular: Regular rate and rhythm, no murmurs Respiratory: Normal breath sounds, symmetric, no distress Abdomen: Soft, nontender, nondistended Extremities: Nontender, no edema, pulses intact 4 Neuro: no focal neurological deficits. Test Results: [] Emergency Department Course and Treatment: Patient no focal neurological deficits. Treated with migraine cocktail with good relief. Discharged with outpatient follow-up. Treatment Plan: [] Disposition: Discharge Impression: 1. Cephalgia This note was generated with [employer] dictation software. It may contain incorrect words, spelling, and punctuation that were not noted in review of the chart prior to signing ED Disposition - Plan for ED Patient: Disposition: Home or Assisted Living Chief Complaint: Headache Diagnosis: Cephalgia Instructions: ED Cephalgia Unspecified Referrals: Silvino Herron MD [Primary Care Provider] - 3-5 Days What to do if you have Problems For any increased pain, shortness of breath, bleeding, nausea or vomiting, chest pain, or any unexpected problems, contact your Primary Care Provider. Call [facility] ([phone]) or report to the closest Emergency Room. Call 911 if necessary. 06/30/172143 <Electronically signed by Jonathan Yoon> Date Jonathan Yoon Cosigner Signature (If Indicated): Date CC: Silvino Herron ALLERGIES ALLERGIES DATE TYPE / CODE NAME / CODE REACTION SEVERITY SOURCE 11/15/2017 Drug doxycycline/ Other Unknown [facility]/4160 [id number]([place] [address](SNOMED XNORM) Repository CT) 11/15/2017 Drug sulfamethoxa Other Unknown [facility]/4160 zole/[id number] [facility](SNOMED 827(RXNORM) Repository CT) 11/15/2017 Drug trimethoprim Other Unknown [facility] All[facility]/4160 /[id number]( [place] [address](SNOMED RXNORM) Repository CT) ENCOUNTERS ENCOUNTERS ADMIT/DISCHARGE ACCOUNT NUMBER ADMITTING ENCOUNTER LOCATION SOURCE CLASS 04/14/2018 [id number] Ambulatory [facility] ding:LAB Repository 01/30/2018 [id number] Ambulatory [facility] ding:US Repository 01/30/2018 [id number] Ambulatory [facility] ding:LABSPEC Repository 01/19/2018 [id number] Ambulatory [facility] ding:OPBI Repository 01/17/2018 [id number] Ambulatory [facility] [place] ng:H.PM 11/15/2017/11/16/19 [id number] Emergency [address] ding:ED Repository 11/15/2017/11/16/19 [id number] Emergency BBuilding:[facility] Mercedes [address] [place] [address] Repository 11/15/2017 [id number] Ambulatory BBuilding: [facility] Repository 10/31/2017/11/01/19 [id number] Emergency [address] ding:ED Repository 06/30/2017/07/01/19 [id number] Emergency [address] ding:ED Repository PAYERS PAYERS ENCOUNTER GUARANTOR PAYER SUBSCRIBER SOURCE 04/14/2018 FATIMAH M Primary NOT GIVENUNK [facility] [id number] Insurance:SELF PAY [place], [place] Number: Effective Repository [id number]: (330) Date:2018-04-14 [phone] () 01/30/2018 FATIMAH M Primary FATIMAH M [facility] [id number] Insurance:ANTHEMPolic MILLERDOB: [facility] y [place]: [id number], [place] [id number] Repository [address]Omc: ([phone]) Date:8573-67-69HV [phone] () [id number], [place] [address]UR: 01/30/2018 Secondary NOT GIVENUNK [facility] Insurance:SELF PAY [facility] Number: Effective Repository Date:2018-01-30 01/30/2018 FATIMAH M Primary FATIMAH M [facility] [id number] Insurance:ANTHEMPolic MILLERDOB: [facility] y Number: [id number], [place] [id number] Repository [address]Pkc: ([phone]) Date:2056-25-81CQ [phone] () [id number] [place] [address]FL: 01/30/2018 Secondary NOT GIVENUNK [facility] Insurance:SELF PAY [facility] Number: Effective Repository Date:2018-01-30 01/19/2018 FATIMAH M Primary FATIMAH M [place] [id number] Insurance:ANTHEMPolic MILLERDOB: [facility] y Number: [id number], [place] [id number] Repository [address]Frd: (330) Date:2147-24-09YP [phone] () [id number], [place] [address]WH: 01/19/2018 Secondary NOT GIVENUNK [place] Insurance:SELF PAY [facility] Number: Effective Repository Date:2018-01-18 01/17/2018 FATIMAH [id number] Primary FATIMAH MILLERUNK [facility] Insurance:[place], [place] OTHERPolicy Number: Repository [id number]: (330) [id number] (HP) Date:0385-15-13VT [address] [place] [address]RC: 11/15/2017 FATIMAH M Primary FATIMAH M [place] [id number] Insurance:ANTHEMPolic MILLERDOB: [facility] y Number: [id number], [place] [id number] Repository [address]Hxw: (330) Date:9417-72-32MC [phone] (HP) [id number], [place] [address]BD: 11/15/2017 Secondary FATIMAH M [place] Insurance:SELF INS MILLERDOB: [facility] [id number] Hospital COPolicy Number: Repository [id number] Date:5516-47-46CZMUOFBRADFORD [facility]ENTERPO [address] [place] [address]AT: 11/15/2017 Tertiary NOT GIVENUNK [place] Insurance:SELF PAY [facility] Number: Effective Repository Date:2017-11-15 11/15/2017 FATIMAH BURGOSB: Primary Insurance: FATIMAH BURGOSB: [facility] [id number] Number: 3 [place] Repository [place] [id number] [place], [place] [address]Ngt: (330) Date:2017-11-1532513Sjh: (HP) [id number] Name:PLASTER PATTERN CASTER Box (HP)Tel: [phone]) 0210YNOBLE [place] [phone] (JL) [address]KU: 11/15/2017 FATIMAHCLARITA DOLLDOB: Primary Insurance: FATIMAH BURGOSB: [facility] [id number] [address] Number: 3 [place], [place] [id number] [place], [place] [address]Dzw: (330) Date:2017-11-15 136[address]Wxa: (HP) [phone] Name:PLASTER PATTERN CASTER Box (HP)Tel: [phone]) 8908FNOBLE [place]UST[place] [phone] (WP) [address]NT: 10/31/2017 Fatimah M Primary Fatimah M [place] [id number] Insurance:ANTHEMPolic MillerDOB: [facility] Number: [id number] [facility] [place] [id number] Repository [address]Qdt: (330) Date:7323-84-47LN [phone] (HP) [id number], [place] [address]ZX: 10/31/2017 Secondary NOT GIVENUNK [place] Insurance:SELF PAY [facility] Number: Effective Repository Date:2017-10-31 06/30/2017 Fatimah Muniz Primary Fatimah Muniz [place] [id number] Insurance:ANTHEMPolic MillerDOB: [facility] Number: [id number] [id number] Repository [address]Eiy: 330) Date:5988-54-90QD [phone] () 133[address]RGWYJDB, [place] [address]HN: 06/30/2017 Secondary NOT GIVENUNK [place] Insurance:SELF PAY [facility] Number: Effective Repository Date:2017-06-30
== END ==
PROVIDERS: Referring Provider Obstetrics & Gynecology; Visit Provider Obstetrics & Gynecology
DX: D21.9 Benign neoplasm of connective and other soft tissue, unspecified (principal); N92.6 Irregular menstruation, unspecified
CPT/HCPCS: 36415; 82670; 84144

== ENCOUNTER → 2018-08-16 11:19 | Outpatient (CLI) | payer SELFPAY ==
[2018-08-16 13:56] LABS: Anion Gap 5 (5-15); BUN 8 mg/dL (7-18); BUN/Creat Ratio 12.5 RATIO (10-20); Chloride 103 mmol/L (98-107); Creatinine, Serum 0.64 mg/dL (0.55-1.02); EST Glomerular Filtration Rate 106 mL/min (>60); Est Glom Filt Rate - Afr Amer 129 mL/min (>60); Glucose 105 mg/dL (74-106); Potassium 3.6 mmol/L (3.5-5.1); Sodium Level 141 mmol/L (136-145); Thyroid Stim Hormone (TSH) 0.25 uIU/mL (0.358-3.74)
== END ==
PROVIDERS: Referring Provider Internal Medicine Gastroenterology; Visit Provider Internal Medicine Gastroenterology
DX: K59.00 Constipation, unspecified (principal)
CPT/HCPCS: 36415; 80048; 84436; 84443

== ENCOUNTER 2018-10-25 00:44 | Emergency (ER) | payer SELFPAY ==
[2018-10-25 00:47] VITALS: BP 127/99; PULSE 85; RESP 17; TEMP 36.8; O2SAT 96; BMI 24.4
--- NOTE | 2018-10-25 01:30 | ED.VISSUMM ---
- ER Visit Summary Date of Service: 10/25/18 Chief Complaint: Right ankle swelling and discomfort History of Present Illness: The patient is a 43 F who presents with 3 days of left lower extremity swelling and discomfort. Patient states approximately 3 days ago her ankle began to swell and started having aching and paresthesias. The sensation is slowly moved up her leg and into her thigh. She feels like her foot was waking up from being asleep. Today patient noted a similar sensation in her right arm. She is not having any pain but is having the sensation that her arm is waking up from being asleep. She has brief episode of her right face feeling the same way. Patient was concerned she might have a blood clot in the right leg because she has a family history of blood clots. She is also been having issues with weight loss and abdominal bloating. She was worked up for possible hypothyroidism. She has an appointment with her primary care doctor in 2 days. Patient has a history of migraines and has been having some right-sided sharp occasional discomfort comes and goes. Patient denies any other symptoms at this time. Physical Examination: Vital signs: afebrile, hemodynamically stable, no hypoxia on room air General: well nourished, well developed, in no distress Skin: warm, dry, no rash, no pallor HEENT: normocephalic and atraumatic; PERRL, EOMI, moist mucous membranes Cardiovascular: regular rate and rhythm without murmurs, no peripheral edema, 2+ pulses all distal extremities Respiratory: No increased work of breathing, lungs are clear to auscultation bilaterally, no rales, rhonchi or wheezing Abdominal: Abdomen is soft, nontender with normoactive bowel sounds, no guarding or rebound, no masses MSK: Moves all extremities, no deformities, normal strength Neuro: Awake and alert, oriented ?4. No facial droop, sensation and motor function intact and symmetric, NIH equals 0 Test Results: Abnormal Lab Results 10/25/18 10/25/18 01:25 01:25 WBC 5.0 RBC 3.55 L Hgb 10.7 L Hct 32.4 L MCV 91.3 MCH 30.1 MCHC 33.0 RDW 13.2 RDW Differential 42.8 Plt Count 263 MPV 8.5 Immature Gran % (Auto) 0.000 Neut % (Auto) 53.1 Lymph % (Auto) 27.9 [place] % (Auto) 8.1 Eos % (Auto) 10.5 H Baso % (Auto) 0.4 Absolute Neuts (auto) 2.6 Absolute Lymphs (auto) 1.38 Total Counted Not Reportable Sodium 140 Potassium 3.5 Chloride 105 Carbon Dioxide 32.0 Anion Gap 3 L BUN 7 Creatinine 0.56 Estim Creat Clear Calc 127.97 Est GFR (MDRD) Af Amer 152 Est GFR (MDRD) Non-Af 126 BUN/Creatinine Ratio 12.6 Glucose 109 H Calcium 8.4 L Magnesium 2.0 TSH 0.73 Emergency Department Course and Treatment: Patient's right-sided symptoms are concerning for possible underlying neurologic issue, including stroke, TIAs, complex migraine, brain mass, or even an underlying metabolic issue such as hypothyroidism or electrolyte abnormality. Given that patient's symptoms have gradually progressed with waxing and waning of the paresthesias, this is not consistent with a stroke, as symptoms would be expected to occur abruptly and not wax and wane in intensity or location. Patient does have the mild swelling in the right ankle that would not be related to a neurologic issue, but a DVT would not cause her arm and face to also have symptoms. Patient is self-pay at this time and she did not want to go through an entire neurologic work-up. We discussed the risks and benefits of a head CT, and she declined at this time. Lab work was performed to look for any underlying electrolyte derangements or thyroid dysfunction. TSH was within normal limits, no electrolyte derangements noted. Because of the lower extremity swelling and pain, patient was given an empiric treatment dose of Lovenox and a order for a duplex ultrasound of the right lower extremity in the morning to evaluate for a DVT. Patient has an appointment with her primary care doctor in 2 days and will follow-up on the ongoing right-sided neurologic symptoms. In my professional opinion, this is not a stroke, however I did discuss with the patient that it could be a complex migraine or even side effects of a tumor or other mass, and a head CT is required to rule out structural neurologic issues. Again patient declined at this time. She will return if any worsening of her symptoms. Patient was discharged home. Treatment Plan: [] Disposition: [] Impression: Right sided paresthesias, right lower extremity swelling and pain This note was generated with Dragon dictation software. It may contain incorrect words, spelling, and punctuation that were not noted in review of the chart prior to signing ED Disposition - Plan for ED Patient: Disposition: Home or Assisted Living Instructions: Paraesthesias Referrals: Silvino Herron MD [Primary Care Provider] - [place] appointment Additional Instructions: If you have any worsening of your condition or any new concerning symptoms, please return immediately to the emergency department for another evaluation.
[2018-10-25 01:32] LABS: Absolute Lymphocyte Count 1.38 X10^3/ul (0.83-4.51); Absolute Neutrophil Count 2.6 X10^3/uL (2.0-7.7); Basophil# 0.02 X10^3/uL; Basophil% 0.4 % (0-1); Eosinophil# 0.52 X10^3/uL; Eosinophils% 10.5 % (0-5); Hematocrit 32.4 % (37-47); Hemoglobin 10.7 g/dl (12.0-15.0); Lymphocyte # 1.38 X10^3/ul (4.0); Lymphocyte % 27.9 % (19-41); Mean Corpuscular Hgb 30.1 pg (27.0-32.0); Mean Corpuscular Volume 91.3 fL (81-99); Mean Platelet Vol. 8.5 fl (6.2-12.0); Monocyte% 8.1 % (0-10); Neutrophil # 2.63 X10^3/uL (2.7-7.7); Neutrophil % 53.1 % (47-70); POSITIVE COUNT NO; POSITIVE DIFFERENTIAL NO; POSITIVE MORPHOLOGY NO; Platelet Count 263 K/mm3 (150-450); RBC Distribution Width CV 13.2 % (11.6-14.6); RBC Distribution Width SD 42.8 fl (35.1-43.9); Red Blood Count 3.55 M/mm3 (4.2-5.4)
[2018-10-25 01:54] LABS: Anion Gap 3 (5-15); BUN 7 mg/dL (7-18); BUN/Creat Ratio 12.6 RATIO (10-20); Calcium,Total 8.4 mg/dL (8.5-10.1); Chloride 105 mmol/L (98-107); Creatinine, Serum 0.56 mg/dL (0.55-1.02); EST Glomerular Filtration Rate 126 mL/min (>60); Est Glom Filt Rate - Afr Amer 152 mL/min (>60); Estimated Creatinine Clearance 127.97 ml/min; Glucose 109 mg/dL (74-106); Potassium 3.5 mmol/L (3.5-5.1); Sodium Level 140 mmol/L (136-145); Thyroid Stim Hormone (TSH) 0.73 uIU/mL (0.358-3.74)
--- NOTE | 2018-10-25 04:41 | ED.RN ---
SEE DOWNTIME DOCUMENTATION FROM 0200 UNTIL 2837
== END 2018-10-25 02:59 | disposition home or self-care (01) ==
PROVIDERS: Emergency Provider Emergency Medicine; Family Provider Family Medicine; PCP Family Medicine
DX: R20.2 Paresthesia of skin (principal); M25.571 Pain in right ankle and joints of right foot; M25.471 Effusion, right ankle; Z79.899 Other long term (current) drug therapy
CPT/HCPCS: 80048; 83735; 84443; 85025; 96372; 99282; A4216

== ENCOUNTER → 2018-10-26 11:01 | Outpatient (CLI) | payer SELFPAY ==
[2018-10-25 00:47] VITALS: BMI 24.4
--- NOTE | 2018-10-26 11:08 | VDLE_ITS ---
Reason For Study: Pain/Swelling RIGHT LEFT GSV is normal. CFV is compressible, spontaneous, competent, CFV is compressible, spontaneous, competent and demonstrates pulsatile venous flow. and demonstrates pulsatile venous flow. FV is compressible, spontaneous, competent and demonstrates pulsatile venous flow. POP V is compressible, spontaneous, competent and demonstrates pulsatile venous flow. T/P Trunk is compressible. PTV is compressible. RT PerV is compressible. Procedure Exam performed in department. A preliminary report was called and/or faxed to [facility]. Interpretation Summary Deep veins of the right lower extremity are patent and compressible segmentally. There is no evidence of right lower extremity deep vein thrombosis. Valvular competence appears intact within the proximal deep venous system on the right . The right greater saphenous vein appears patent and compressible segmentally. Pulsatile flow is noted in the deep venous system, which may be indicative of elevated central venous pressure (i.e. congestive heart failure, tricuspid valve insufficiency, etc.). Clinical correlation is advised. Ordering Physician: Armida Farmer Referring Physician: Silvino Herron Performed By: Zina Brown RVT
== END ==
PROVIDERS: Family Provider Family Medicine; PCP Family Medicine; Referring Provider Emergency Medicine; Visit Provider Emergency Medicine
DX: M79.89 Other specified soft tissue disorders (principal); M79.604 Pain in right leg
CPT/HCPCS: 93971

== ENCOUNTER → 2018-10-27 15:31 | Outpatient (CLI) | payer SELFPAY ==
[2018-10-25 00:47] VITALS: BMI 24.4
[2018-10-27 16:55] LABS: Erythrocyte Sedimentation Rate 25 mm/hr (0-20)
[2018-10-27 17:14] LABS: CRP 9.29 mg/L (0.0-3.0); Rheumatoid Factor < 10.0 IU/mL (<15)
[2018-10-31 16:22] LABS: CCP IgG Antibodies 6 units (0-19)
[2018-10-31 16:44] LABS: ANTINUCLEAR ANTIBODIES DIRECT Negative (Negative)
== END ==
PROVIDERS: Family Provider Family Medicine; PCP Family Medicine; Visit Provider Family Medicine
DX: M06.4 Inflammatory polyarthropathy (principal)
CPT/HCPCS: 36415; 85652; 86038; 86140; 86200; 86225; 86235; 86431

== ENCOUNTER → 2018-11-14 | Outpatient (CLI) | payer SELFPAY ==
[2018-10-25 00:47] VITALS: BMI 24.4
[2018-11-14 16:07] LABS: Free T3 2.9 pg/mL (2.18-3.98); T4 Free Direct 0.83 ng/dL (0.76-1.46); Thyroid Stim Hormone (TSH) 1.28 uIU/mL (0.358-3.74)
[2018-11-16 11:47] LABS: Thyroid Peroxidase AB 11 IU/mL (0-34)
== END | disposition home or self-care (01) ==
LOC: LAB.FUTURE 11:34
PROVIDERS: Family Provider Family Medicine; PCP Family Medicine; Visit Provider Family Medicine
DX: E05.90 Thyrotoxicosis, unspecified without thyrotoxic crisis or storm (principal)
CPT/HCPCS: 36415; 84439; 84443; 84481; 86376

== ENCOUNTER → 2018-11-17 | Outpatient (CLI) | payer SELFPAY ==
[2018-10-25 00:47] VITALS: BMI 24.4
[2018-11-17 15:55] LABS: AST(SGOT) 47 U/L (15-37); Alanine Aminotransfer ALT/SGPT 92 U/L (13-56); Albumin, Serum 3.8 g/dL (3.2-5.0); Alkaline Phosphatase 285 U/L (45-117); Protein, Total 7.8 g/dL (6.4-8.2)
[2018-11-20 09:49] LABS: Hepatitis B Surface Antigen Non-Reactive (Nonreactive); Hepatitis C Antibody Non-Reactive (Nonreactive); Vitamin B12 483 pg/mL (211-911)
[2018-11-20 12:01] LABS: Hepatitis A IgM Antibody Negative (Negative)
== END | disposition home or self-care (01) ==
LOC: BFHLAB 13:51
PROVIDERS: Family Provider Family Medicine; PCP Family Medicine; Visit Provider Family Medicine
DX: M06.9 Rheumatoid arthritis, unspecified (principal); G62.9 Polyneuropathy, unspecified
CPT/HCPCS: 36415; 80076; 82607; 86709; 86803; 87340

== ENCOUNTER → 2018-12-20 14:04 | Outpatient (CLI) | payer SELFPAY ==
[2018-12-20 15:56] LABS: AST(SGOT) 28 U/L (15-37); Alanine Aminotransfer ALT/SGPT 28 U/L (13-56); Albumin, Serum 3.3 g/dL (3.2-5.0); Alkaline Phosphatase 140 U/L (45-117); Bilirubin, Direct < 0.05 mg/dL (0.00-0.30); Globulin 3.6 g/dL (2.2-4.2); Protein, Total 6.9 g/dL (6.4-8.2); Total Bilirubin < 0.10 mg/dL (0.20-1.00)
== END ==
LOC: LAB.FUTURE 14:05
PROVIDERS: Family Provider Family Medicine; PCP Family Medicine; Visit Provider Family Medicine
DX: E05.90 Thyrotoxicosis, unspecified without thyrotoxic crisis or storm (principal); R74.0 Nonspecific elevation of levels of transaminase and lactic acid dehydrogenase [LDH]
CPT/HCPCS: 36415; 80076

== ENCOUNTER → 2019-01-05 16:27 | Outpatient (CLI) | payer SELFPAY ==
[2019-01-05 17:29] LABS: AST(SGOT) 21 U/L (15-37); Alanine Aminotransfer ALT/SGPT 37 U/L (13-56); Alkaline Phosphatase 160 U/L (45-117); Anion Gap 7 (5-15); BUN 18 mg/dL (7-18); Calcium,Total 8.8 mg/dL (8.5-10.1); Chloride 105 mmol/L (98-107); Creatinine, Serum 0.72 mg/dL (0.55-1.02); EST Glomerular Filtration Rate 93 mL/min (>60); Est Glom Filt Rate - Afr Amer 112 mL/min (>60); Globulin 4.1 g/dL (2.2-4.2); Glucose 107 mg/dL (74-106); Potassium 3.8 mmol/L (3.5-5.1); Protein, Total 8.1 g/dL (6.4-8.2); Sodium Level 140 mmol/L (136-145)
== END ==
LOC: LAB.FUTURE 16:28
PROVIDERS: Family Provider Family Medicine; PCP Family Medicine; Visit Provider Family Medicine
DX: M06.9 Rheumatoid arthritis, unspecified (principal)
CPT/HCPCS: 36415; 80053

== ENCOUNTER → 2019-01-19 10:48 | Outpatient (CLI) | payer SELFPAY ==
[2019-01-19 09:43] VITALS: BMI 24.4
--- NOTE | 2019-01-19 10:55 | RAD_ITS ---
STUDY: X-RAY - ABDOMEN/PELVIS REASON FOR EXAM: Female, 43 years old. Severe constipation and abdominal pain. TECHNIQUE: AP supine and upright views of the abdomen and pelvis. COMPARISON: None. FINDINGS: Normal visualized lung bases. There is an abundance of fecal material throughout the colon. There is no demonstrated free abdominal air. The visualized liver, spleen and kidneys are grossly normal in size and morphology. Normal soft tissue structures. Normal visualized osseous structures. RAD[employer] Decub and/or Erect IMPRESSION: Large amount of fecal material is seen in the colon. Electronically Signed: Brian Mujica, at 11:35 EDT , Service support ,
== END ==
LOC: RAD 10:49
PROVIDERS: Family Provider Family Medicine; PCP Family Medicine; Referring Provider Surgery; Visit Provider Surgery
DX: K59.00 Constipation, unspecified (principal)
CPT/HCPCS: 74019

== ENCOUNTER → 2019-02-19 11:12 | Outpatient (CLI) | payer SELFPAY ==
[2019-01-19 09:43] VITALS: BMI 24.4
[2019-02-19 15:28] LABS: Absolute Neutrophil Count 3.4 X10^3/uL (2.0-7.7); Basophil# 0.02 X10^3/uL; Basophil% 0.4 % (0-1); Eosinophil# 0.32 X10^3/uL; Hematocrit 35.8 % (37-47); Hemoglobin 11.4 g/dL (12.0-15.0); Lymphocyte % 20.7 % (19-41); Mean Corp Hgb Conc 31.8 g/dL (32-36); Mean Corpuscular Hgb 29.7 pg (27.0-32.0); Mean Corpuscular Volume 93.2 fL (81-99); Mean Platelet Vol. 9.5 fl (6.2-12.0); Monocyte# 0.46 X10^3/uL; Monocyte% 8.7 % (0-10); NRBC Flagged by Analyzer 0 % (0-5); Neutrophil # 3.39 X10^3/uL (2.7-7.7); Neutrophil % 63.8 % (47-70); Platelet Count 264 K/mm3 (150-450); RBC Distribution Width CV 14.2 % (11.6-14.6); RBC Distribution Width SD 48.5 fl (35.1-43.9); Red Blood Count 3.84 M/mm3 (4.2-5.4); White Blood Count 5.3 K/mm3 (4.4-11.0)
[2019-02-19 15:38] LABS: Erythrocyte Sedimentation Rate 26 mm/hr (0-20)
[2019-02-19 15:53] LABS: ALB/GLOB Ratio 1.1 RATIO (0.9-2.4); AST(SGOT) 104 U/L (15-37); Alanine Aminotransfer ALT/SGPT 85 U/L (13-56); Albumin, Serum 3.8 g/dL (3.2-5.0); Alkaline Phosphatase 189 U/L (45-117); Anion Gap 6 (5-15); BUN 12 mg/dL (7-18); BUN/Creat Ratio 20.1 RATIO (10-20); Calcium,Total 8.5 mg/dL (8.5-10.1); Chloride 102 mmol/L (98-107); EST Glomerular Filtration Rate 115 mL/min (>60); Est Glom Filt Rate - Afr Amer 140 mL/min (>60); Globulin 3.6 g/dL (2.2-4.2); Glucose 122 mg/dL (74-106); Potassium 3.9 mmol/L (3.5-5.1); Protein, Total 7.4 g/dL (6.4-8.2); Sodium Level 139 mmol/L (136-145)
== END ==
LOC: LAB.FUTURE 11:12 → BFHLAB 02-20 14:08
PROVIDERS: Family Provider Family Medicine; PCP Family Medicine; Visit Provider Family Medicine
DX: M06.9 Rheumatoid arthritis, unspecified (principal); R74.0 Nonspecific elevation of levels of transaminase and lactic acid dehydrogenase [LDH]; Z51.81 Encounter for therapeutic drug level monitoring
CPT/HCPCS: 36415; 80053; 85025; 85652; 86140

== ENCOUNTER 2019-06-01 07:54 | Day surgery (SDC) | payer MEDICAID, SELFPAY ==
[2019-05-29 09:01] VITALS: BMI 24.4
--- NOTE | 2019-05-29 09:35 | HP_ITS ---
Intake Vital Signs 05/29/19 BMI 24.4 05/29/19 Height 5 ft 7 in 05/29/19 Weight: 158 lb 05/29/19 BMI 24.7 05/29/19 BP 128/84 H 05/29/19 Blood Pressure Location Rt brachial 05/29/19 Position Sitting 05/29/19 Respiration 18 05/29/19 Pulse 78 05/29/19 Pulse Source Monitor 05/29/19 Temp 98.2 F 05/29/19 Temp Source Oral 05/29/19 Pulse Oximetry (%) 99 05/29/19 Oxygen Delivery Method room air Intake Visit Reasons: to discuss scheduling c-scope Digital Media Producer Required: No Is patient in pain?: No Allergies latex Allergy (Unknown, Verified 05/29/19 09:00) Unknown doxycycline Allergy (Verified 05/29/19 09:00) Other sulfamethoxazole [From Bactrim] Adverse Reaction (Verified 05/29/19 09:00) Other trimethoprim [From Bactrim] Adverse Reaction (Verified 05/29/19 09:00) Other Medications Butalb/Acetaminophen/Caffeine [Fupyhr-Ytrgkexa-Icct 50-300-40] 1 tab PO DAILY 06/30/17 [History Confirmed 05/29/19] Sumatriptan Succinate 50 mg PO PRN PRN 06/30/17 [History Confirmed 05/29/19] Bupropion HCl [Wellbutrin Xl] 300 mg PO BID 10/25/18 [History Confirmed 05/29/19] Escitalopram Oxalate [Lexapro] 40 mg PO DAILY 10/25/18 [History Confirmed 05/29/19] Meloxicam [Mobic] 15 mg PO DAILY 10/25/18 [History Confirmed 05/29/19] Progesterone, Micronized [Progesterone] 400 mg PO BID 10/25/18 [History Confirmed 05/29/19] methotrexate sodium 7.5 mg tablet 7.5 mg PO QWEEK 01/19/19 [History Confirmed 05/29/19] pantoprazole 40 mg tablet,delayed release 40 mg PO DAILY #90 tab 05/29/19 [Rx Confirmed 05/29/19] sucralfate 1 gram tablet 1 g PO QACHS #120 tab 05/29/19 [Rx Confirmed 05/29/19] PFSH Medical History Hemorrhoids (Acute) Acid reflux (Acute) Blood in stool (Acute) Constipation (Acute) Nausea (Acute) Depression (Acute) RA (rheumatoid arthritis) (Acute) Fatigue (Acute) Surgical History History of (Acute) History of surgery on arm (Acute) Family History Mother Hypertension Social History (Updated 05/29/19 @ 09:35 by Eulalia De La Cruz MD) Smoking Status: Never smoker second hand exposure: No alcohol intake: current alcohol intake frequency: a few times a week substance use type: does not use caffeine: No what type of physical activity do you participate in: none frequency: does not exercise HPI HPI HPI: GUILLERMINA DOLL, is a 43 F who presents to the office today for HPI HPI Surgical H&P: Yes HPI: GUILLERMINA DOLL, is a 43 F who presents to the office today for follow-up from her abdominal pain/bloating/constipation with worsening epigastric pain to schedule EGD and colonoscopy. Patient took several weeks to relieve her constipation with multiple enemas, MiraLAX, suppositories, bottles magnesium citrate. That has improved. Patient states last 2 weeks she has been having increased abdominal pain mostly epigastric she is also been taking quite a bit of ibuprofen and Tylenol to help with this pain she still has a lot of bloating after eating she is tried Gas-X Pepto-Bismol, Mylanta and those do not seem to help. She is also tried taking the Prevacid but she only took it PRN. Patient states for a bowel movement she is now currently taking a Colace every other day and having bowel movements daily. Patient's maternal uncle did have colon cancer in his 40s to 50s. Patient has never had a colonoscopy. ROS General General: Yes weight change (Gained about 23 pounds in the last year), appetite (Decreased due to bloating with eating) and fatigue Gastro Gastrointestinal: Yes abdominal pain, Yes nausea or vomiting (Nausea no vomiting), No diarrhea, Yes constipation Exam Const General: cooperative, comfortable, no acute distress Resp Effort & Inspection: normal respiratory effort Cardio Rate: regular rate GI Inspection: non-distended Palpation: soft, no guarding, tender (Especially epigastric, mild lower abdomen, no peritoneal signs) Neuro Cranial Nerves: CN's II-XI intact bilaterally Psych Affect: normal affect Assessment & Plan Problems 1. Epigastric abdominal pain R10.13 2. Bloating symptom R14.0 3. Constipation K59.00 Plan Will have patient avoid ibuprofen, start taking Protonix 40 mg p.o. daily and also Carafate 1 g p.o. 4 times daily 1 hour prior to eating to see if this helps with her epigastric pain. I have discussed the above with the patient. I have offered the patient EGD and colonoscopy for evaluation. I have explained the risks/benefits of the procedure and described the procedure. I have discussed the risks with the patient, including but not limited to: infection, bleeding, perforation of the GI tract requiring emergency surgery, inability to complete the procedure, injury to any internal organs, complications of anesthesia, etc. - the patient understands and agrees to proceed. I have answered all the patient's questions to the patient's satisfaction and the patient has no further questions. The patient has been given instructions for the colon cleansing preparation. One day of clears/MiraLAX Dulcolax split prep Eulalia De La Cruz M.D. Pager: [phone] [facility] [address] [place] [address], [facility], [address] [place] [address] Office: [phone] Medications New: pantoprazole 40 mg PO DAILY 90 tabs 0RF sucralfate Take 1 hour before meals and at bedtime 1 g PO QACHS 120 tabs 0RF Plan Detail Follow Up We will schedule EGD and colonoscopy Coding Level of Care Code Off vis,est,level 3 Diagnoses Epigastric abdominal pain R10.13 Bloating symptom R14.0 Constipation K59.00 05/29/19 0935 <Electronically signed by Eulalia Cedeno am, MD> Date _ Eulalia De La Cruz MD
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
[2019-06-01] VITALS (18 sets, daily range): BP systolic 92–113; BP diastolic 49–95; PULSE 57–83; RESP 14–16; TEMP 36.2–36.7; O2SAT 94–100; BMI 23.6
[2019-06-01] MEDS: Lactated Ringers 1,000 ML 100 ML IV ×2 (08:53→10:36)
[2019-06-01 09:08] LABS: Hematocrit 40.9 % (37-47); Hemoglobin 13.6 g/dL (12.0-15.0); Mean Corp Hgb Conc 33.3 g/dL (32-36); Mean Corpuscular Hgb 29.1 pg (27.0-32.0); Mean Corpuscular Volume 87.6 fL (81-99); Mean Platelet Vol. 8.6 fl (6.2-12.0); Platelet Count 272 K/mm3 (150-450); RBC Distribution Width CV 12.3 % (11.6-14.6); RBC Distribution Width SD 39.3 fl (35.1-43.9); Red Blood Count 4.67 M/mm3 (4.2-5.4); White Blood Count 4.1 K/mm3 (4.4-11.0)
[2019-06-01 09:09] LABS: Scan Indicated on CBC? Y/N NO
[2019-06-01 09:12] LABS: Partial Thromboplast Time 26.4 Seconds (24.1-36.2)
--- NOTE | 2019-06-01 09:30 | EMB_PTH ---
PATIENT: GUILLERMINA DOLL LOC: [facility] U#:[id number] AGE/SX: 43/F ROOM: RE06/01/[address]: Dr. Luis Angel Maddox MD : 1975 BED: DIS: 06/01/2019 SPEC #: [id number] RECD: 06/01/19 13:08 STATUS: JAYDA DALE #: [id number] ALLEY: 06/01/19 09:[address]: Luis Angel Maddox DEPT: SURGICAL PATHOLOGY RECD BY: Amos Tanner ENTERED: 06/01/19 13:32 SP TYPE: ENDOM BX/C OT DR: Dr. Silvino Herron MD Tissues: Endometrium, NOS Procedures: Surgery Specimen Level IV HEADER OPERATION: Hysteroscopy, D & C PRE-OP DIAGNOSIS: Dysmenorrhea, polyp of cervix uteri and submucous leiomyoma uterus TISSUE SUBMITTED: Endometrial curettings MICROSCOPIC DIAGNOSIS Endometrium, biopsy: Transition endometrium with focal glandular and stromal breakdown. AM:nadeen 06/04/19 MICROSCOPIC DESCRIPTION Slides are reviewed. GROSS DESCRIPTION Received in fixative is one container labeled with the patient's name and designated endometrial curettings. The specimen consists of multiple fragments of hemorrhagic soft tissue that in aggregate measure 3 x 2.5 x 0.2 cm. The specimen is totally submitted in one cassette. / SJ:nadeen 06/01/19 TC:5 CPT: 18779
--- NOTE | 2019-06-01 09:37 | PCM.OPRPT ---
Report of Operation Date of Procedure: 06/01/19 Pre-Operative Diagnosis: Endometrial Polyp, Dysmenorrhea Post-Operative Diagnosis: Dysmenorrhea, Submucous Fibroid Surgery/Procedure Performed:: Diagnostic Hysteroscopy and Dilation and Curettage Description of Surgical Findings:: 2 cm Submucous Fibroid and an 8 cm endometrial cavity. No endometrial polyps visualized. Multiple fibroids palpated with curette. Perforation with curette during last pass of curette mediately recognized and then immediately stopped the procedure. Cervix which protrudes to within 1 cm of the introitus with tenaculum pulled down which would make laparoscopic-assisted vaginal hysterectomy possible if other factors are favorable. Type of Anesthesia:: MAC Anesthesiologist: Omero Dominguez Specimen's removed: Endometrial curettings Estimated Blood Loss (mL): Minimal Fluids Replaced: Crystalloid Description of Procedure: Surgeon: Luis Angel Maddox MD, FACOG Indications: This is a 43 year old patient who has the above diagnosis. The patient has been counseled regarding the risk and indications of this procedure including the possibility of bleeding, infection, and injury to surrounding structures such as bowel bladder. All questions were answered and we consider the patient well-informed. Procedure: The patient was taken to the operating room where after induction of general anesthesia, she was placed in the dorsolithotomy position and prepped and draped in the usual sterile fashion. Anterior cervix was grasped with the tenaculum and dilated to about 4-5 mm. A 3 mm hysteroscope was placed in the uterus of the above findings were noted. Cervix was dilated to about 7-8 mm and uterus was gently curetted removing all contents. Hysteroscope was reinserted and all material was noted to be removed although we were unable to remove the submucous fibroid. At this point it was noted that the uterus had been perforated with the last pass of the curette likely adjacent to the uterine fibroid in a thin section of uterine wall. Patient remained stable. In the course of the procedure approximately 100 cc of saline distending media was used and virtually all of this was recovered. Patient tolerated procedure well was taken to recovery room in satisfactory condition sponge instrument and needle counts were all reportedly correct. Estimated blood loss for the case was minimal. Specimens to pathology was endometrial curettings Grafts/Implants Used: None - Complications Uterine perforation - Admit VTE Documentation VTE Present on Admission: Yes VTE Mechan Device Prophylaxis: SCD's
--- NOTE | 2019-06-01 10:12 | PCM.DC.D&C ---
Discharge Diet: No Restrictions Discharge Activity: Return to Normal Activity, May Shower, May Take a Tub Bath Call your doctor if you observe: Fever of 101 or Higher, Inability to urinate, Inability to have a bowel movement, Using more than one pad per hour Allergies/Adverse Reactions: Allergies latex Allergy (Unknown, Verified 06/01/19 08:20) Unknown doxycycline Allergy (Verified 06/01/19 08:20) Other sulfamethoxazole [From Bactrim] Adverse Reaction (Verified 06/01/19 08:20) Other trimethoprim [From Bactrim] Adverse Reaction (Verified 06/01/19 08:20) Other Medications to take at Discharge Butalb/Acetaminophen/Caffeine [Ukpbxr-Ezvbgkft-Vmuq 50-300-40] 1 tab PO DAILY PRN 06/30/17 Sumatriptan Succinate 50 mg PO PRN PRN 06/30/17 Escitalopram Oxalate [Lexapro] 40 mg PO DAILY 10/25/18 Progesterone, Micronized [Progesterone] 400 mg PO QHS 10/25/18 pantoprazole 40 mg tablet,delayed release 40 mg PO DAILY #90 tab 05/29/19 sucralfate 1 gram tablet 1 g PO QACHS #120 tab 05/29/19 Hydrocodone/Acetaminophen [[place] 5-325 Tablet] 1 ea PO Q6H PRN PRN 7 Days #10 tab 06/01/19 The following prescriptions were given: Hydrocodone/Acetaminophen [[place] 5-325 Tablet] 1 ea PO Q6H PRN PRN 7 Days #10 tab PRN Reason: Pain Score 6-10/10 Transmission Status: Received by [facility]/pharmacy #[id number] Orders to be completed after discharge: Type & Screen Time Frame: 06/01/19, Facility: [facility], Location: Laboratory Primary Care Physician: Silvino Herron MD [Primary Care Provider] - Test Results: Test results from this visit will be discussed in further detail at your follow-up appointment, if applicable. Please Follow Up With: Luis Angel Maddox MD When: 2-3 weeks
== END 2019-06-01 12:42 | disposition home or self-care (01) ==
LOC: SDC 07:56 → AC 07:57
PROVIDERS: PCP Family Medicine; Referring Provider Obstetrics & Gynecology; Visit Provider Obstetrics & Gynecology
PROC: 0UDB8ZZ Extraction of Endometrium, Via Natural or Artificial Opening Endoscopic (ICD-10-PCS; CPT 58558; principal; 2019-06-01 09:20)
DX: N94.6 Dysmenorrhea, unspecified (principal); D25.0 Submucous leiomyoma of uterus; N99.71 Accidental puncture and laceration of a genitourinary system organ or structure during a genitourinary system procedure; D64.89 Other specified anemias; G43.909 Migraine, unspecified, not intractable, without status migrainosus; F32.9 Major depressive disorder, single episode, unspecified; F41.8 Other specified anxiety disorders; Z87.891 Personal history of nicotine dependence
CPT/HCPCS: 00952; 58558; 36415; 85027; 85610; 85730; 86850; 86900; 86901; 88305; J7120; J2405

== ENCOUNTER 2019-06-06 21:53 | Emergency (ER) | payer MEDICAID, SELFPAY ==
[2019-06-01 08:26] VITALS: BMI 23.6
[2019-06-06 21:55] VITALS: BP 112/90; PULSE 97; RESP 18; TEMP 36.3; O2SAT 96; BMI 24.4
[2019-06-06 22:04] VITALS: BP 118/85; PULSE 98; RESP 14; O2SAT 98
--- NOTE | 2019-06-06 22:20 | CT_ITS ---
STUDY: CT ABDOMEN AND PELVIS WITH CONTRAST REASON FOR EXAM: Female, 43 years old. CONCERN FOR UTERINE PERFORATION, ABLATION FEW DAYS AGO, PT HAS SEVERE SHARP PAIN AND STARTED BLEEDING TODAY, NO RELIEF WITH PAIN MEDS RADIATION DOSAGE (If Supplied By Facility): CTDIvol = ( 11.41 ) mGy, DLP = ( 483.82 ) mGycm TECHNIQUE: Transaxial images were obtained from the dome of the diaphragm to the symphysis pubis with oral contrast. Oral and amp; IV Gastrografin and amp; 100mL Isovue-300 was administered. Sagittal and coronal images were reconstructed. Individualized dose optimization techniques were used for this CT. COMPARISON: None. FINDINGS: The visualized lung bases are unremarkable. The visualized portions of the heart are within normal limits. Normal liver. Normal gallbladder and extrahepatic biliary system. Normal spleen. Diffusely prominent pancreatic duct, measuring up to 7 mm in diameter in the pancreatic body. No underlying masses are visible. Consider MRCP follow-up. Normal bilateral adrenal glands. 15 mm right renal cyst. Normal left kidney. Normal visualized stomach. Normal small intestine. Normal colon. The appendix is visualized and appears normal. Normal abdominal aorta. Normal inferior vena cava. Normal retroperitoneum. Normal urinary bladder. 19 x 15 mm left ovary cyst. Postprocedural uterine changes without evidence of perforation. No evidence of hemorrhage, abscess or free air. Umbilical fat hernia. Normal osseous structures. CT/Abdomen/Pelvis WITH Contrast IMPRESSION: Postprocedural uterine changes without evidence of perforation. No evidence of hemorrhage, abscess or free air. 19 x 15 mm left ovary cyst. Diffusely prominent pancreatic duct, measuring up to 7 mm in diameter in the pancreatic body. No underlying masses are visible. Consider MRCP follow-up. Electronically Signed: Elbert Smith MD at 0:16 EST Tel , Service support ,
[2019-06-06 22:21] LABS: Absolute Lymphocyte Count 2.45 X10^3/uL (0.83-4.51); Basophil# 0.02 X10^3/uL; Basophil% 0.4 % (0-1); Eosinophil# 0.21 X10^3/uL; Eosinophils% 4.2 % (0-5); Hemoglobin 13.7 g/dL (12.0-15.0); Lymphocyte # 2.45 X10^3/ul (4.0); Lymphocyte % 48.8 % (19-41); Mean Corp Hgb Conc 33.4 g/dL (32-36); Mean Corpuscular Hgb 29.1 pg (27.0-32.0); Mean Platelet Vol. 8.6 fl (6.2-12.0); Monocyte# 0.35 X10^3/uL; NRBC Flagged by Analyzer 0 % (0-5); Neutrophil # 1.98 X10^3/uL (2.7-7.7); Neutrophil % 39.4 % (47-70); Platelet Count 293 K/mm3 (150-450); RBC Distribution Width CV 12.2 % (11.6-14.6); Red Blood Count 4.71 M/mm3 (4.2-5.4)
[2019-06-06] MEDS: Ondansetron 4 MG/2 ML Vial IV (22:24)
[2019-06-06] MEDS: 0.9% Normal Saline 1,000 ML 150 ML IV (22:24)
[2019-06-06] MEDS: Morphine 4 MG/ML Syringe IV ×2 (22:24→23:51)
[2019-06-06 22:31] LABS: Anion Gap 5 (5-15); BUN 9 mg/dL (7-18); BUN/Creat Ratio 12.4 RATIO (10-20); Calcium,Total 9.3 mg/dL (8.5-10.1); Chloride 107 mmol/L (98-107); Creatinine, Serum 0.73 mg/dL (0.55-1.02); EST Glomerular Filtration Rate 92 mL/min (>60); Est Glom Filt Rate - Afr Amer 111 mL/min (>60); Estimated Creatinine Clearance 94.64 ml/min; Glucose 105 mg/dL (74-106); Potassium 3.2 mmol/L (3.5-5.1); Sodium Level 141 mmol/L (136-145)
--- NOTE | 2019-06-06 22:39 | ED.VISSUMM ---
- ER Visit Summary Date of Service: 06/06/19 Chief Complaint: [Pelvic pain and vaginal bleeding] History of Present Illness: The patient is a 43 F [presents to the emergency department complaint pelvic pain for the last 5 days. Patient states that on June 01 she had a D&C for suspected polyp in her uterus which ended up being some sort of a cystic structure. Patient during procedure had perforation of her uterus with a curette. After procedure she had a hard time having her pain controlled however was discharged home with a prescription for [place] and eventually tramadol. Patient states that she has had significant pain ever since the procedure. Tonight patient went to urinate and had a large gush of blood in the toilet from her vagina. Patient complains of intermittent severe lower abdominal pain. Patient has no medical history otherwise. Prior surgeries include .] Physical Examination: [HEENT-PERRLA, EOMI. Cranial nerves II through XII grossly intact. TMs clear. Mucous membranes moist. No adenopathy. Cardiovascular-regular rate and rhythm without murmur or ectopy Lungs-clear to auscultation, chest wall stable without crepitus or subcu emphysema Abdomen-normoactive bowel sounds, soft. Patient has tenderness palpation over the suprapubic region with some guarding. There is no rebound, rigidity, or peritoneal signs. Extremities-intact ?4, normal range of motion, normal pulses, atraumatic] Test Results: [CBC with differential obtained was unremarkable. Chemistries unremarkable other than a slightly depressed potassium of 3.2. CT scan of the abdomen pelvis with IV and p.o. contrast ordered and pending] Emergency Department Course and Treatment: [] Treatment Plan: [] Disposition: [Pending] Impression: [] This note was generated with [employer] dictation software. It may contain incorrect words, spelling, and punctuation that were not noted in review of the chart prior to signing <Duke Ch - Last Filed: 06/06/19 22:39> - ER Visit Summary Date of Service: 06/07/19 Chief Complaint: [] History of Present Illness: The patient is a 43 F [] Physical Examination: [] Test Results: CT/Abdomen/Pelvis WITH Contrast IMPRESSION: Postprocedural uterine changes without evidence of perforation. No evidence of hemorrhage, abscess or free air. 19 x 15 mm left ovary cyst. Diffusely prominent pancreatic duct, measuring up to 7 mm in diameter in the pancreatic body. No underlying masses are visible. Consider MRCP follow-up. Electronically Signed: Elbert Smith MD at 0:16 EST Tel , Service support , CBC and differential normal. Basic metabolic panel reveals a potassium of 3.[address] Merritt Morales was paged and informed of CT results. She states will see patient on Tuesday. I was informed the patient is scheduled for colonoscopy and EGD. CAT scan reveals diffuse prominent pancreatic duct and recommend MRCP for follow-up. Emergency Department Course and Treatment: Follow-up with INSTRUCTIONAL DESIGN SPECIALIST on Tuesday. Radiologist is recommending MRCP to evaluate prominent pancreatic duct that measures 7 mm in diameter in the pancreatic body. Treatment Plan: Opiate analgesia, INSTRUCTIONAL DESIGN SPECIALIST follow-up and possible MRCP. Disposition: Discharge to home Impression: 1. Pelvic pain postop without evidence of infection or perforation 2. Left ovarian cyst 1.9 x 1.5 cm 3. Dilated pancreatic duct uncertain etiology 4. Hypokalemia This note was generated with [employer] dictation software. It may contain incorrect words, spelling, and punctuation that were not noted in review of the chart prior to signing <Claus Golden - Last Filed: 06/07/19 00:32> ED Disposition <Duke Ch - Last Filed: 06/06/19 22:39> <Claus Golden - Last Filed: 06/07/19 00:32> - Plan for ED Patient: Disposition: Home or Assisted Living Instructions: Managing Post-Op Pain at Home: Medications, Ovarian Cyst Prescriptions: Hydrocodone Bitart/Apap 5-325 [[place] 5MG-325MG] 1 tab PO Q6H PRN PRN 3 Days #10 tab PRN Reason: Pain Prescription Printed Referrals: Silvino Herron MD [Primary Care Provider] - Luis Angel Maddox MD [STAFF PHYSICIAN] - 06/11/19 Additional Instructions: Your pancreatic duct is dilated on the CAT scan. Radiologist is recommending MRCP.
[2019-06-06 23:52] LABS: Bacteria 0 SEEN /hpf (None Seen); Mucous, Urine 0 SEEN /hpf (<or=2+); Red Blood Cells-Urine 0 SEEN /hpf (0-5); White Blood Cells 0 SEEN /hpf (0-5)
[2019-06-06 23:53] LABS: Color, Urine Yellow (Yellow); Glucose, Dipstick Normal (Normal); Ketone-Dipstick Negative (Negative); Leukocyte Esterase-Dipstick Negative /ul (Negative); Nitrite-Dipstick Negative (Negative); Occult Blood-Urine Negative /ul (Negative); Protein-Dipstick Negative (Negative); Urine Bilirubin Dipstick Negative (Negative); Urine Clarity Clear (Clear); Urine Urobilinogen Normal (Normal)
[2019-06-07 00:01] LABS: Amorphous Sediment 1+; Squamous Epithelial Cells - UA 0-5 SEEN /hpf (5-10)
[2019-06-07 00:06] VITALS: BP 125/70; PULSE 95; RESP 14; O2SAT 98
[2019-06-07 00:43] VITALS: BP 115/70; PULSE 80; RESP 16; O2SAT 98
== END 2019-06-07 00:46 | disposition home or self-care (01) ==
PROVIDERS: Emergency Provider Emergency Medicine; PCP Family Medicine
DX: R10.2 Pelvic and perineal pain (principal); G89.18 Other acute postprocedural pain; N83.202 Unspecified ovarian cyst, left side; K86.89 Other specified diseases of pancreas; E87.6 Hypokalemia
CPT/HCPCS: 74177; 80048; 81001; 85025; 86850; 86900; 86901; 96361; 96374; 96375; 96376; 99283; J7030; Q9967; A4216; J2405

== ENCOUNTER 2019-06-10 16:29 | Emergency (ER) | payer MEDICAID, SELFPAY ==
[2019-06-10 16:30] VITALS: BP 130/81; PULSE 114; RESP 20; TEMP 36.8; O2SAT 98; BMI 23.8
[2019-06-10] MEDS: Ondansetron 4 MG/2 ML Vial IV (17:05)
[2019-06-10] MEDS: Morphine 4 MG/ML Syringe IV (17:05)
[2019-06-10 17:13] LABS: Absolute Lymphocyte Count 2.17 X10^3/uL (0.83-4.51); Basophil# 0.02 X10^3/uL; Basophil% 0.4 % (0-1); Eosinophil# 0.16 X10^3/uL; Eosinophils% 2.8 % (0-5); Hematocrit 41.8 % (37-47); Hemoglobin 13.9 g/dL (12.0-15.0); Lymphocyte # 2.17 X10^3/ul (4.0); Lymphocyte % 38.5 % (19-41); Mean Corp Hgb Conc 33.3 g/dL (32-36); Mean Corpuscular Volume 87.3 fL (81-99); Mean Platelet Vol. 8.5 fl (6.2-12.0); Monocyte# 0.33 X10^3/uL; Monocyte% 5.9 % (0-10); NRBC Flagged by Analyzer 0 % (0-5); Neutrophil # 2.95 X10^3/uL (2.7-7.7); Neutrophil % 52.2 % (47-70); Platelet Count 309 K/mm3 (150-450); RBC Distribution Width CV 12.7 % (11.6-14.6); Red Blood Count 4.79 M/mm3 (4.2-5.4); White Blood Count 5.6 K/mm3 (4.4-11.0)
[2019-06-10 17:39] LABS: AST(SGOT) 16 U/L (15-37); Alanine Aminotransfer ALT/SGPT 41 U/L (13-56); Albumin, Serum 4.4 g/dL (3.2-5.0); Alkaline Phosphatase 137 U/L (45-117); Anion Gap 6 (5-15); BUN 8 mg/dL (7-18); BUN/Creat Ratio 12.7 RATIO (10-20); Bilirubin, Direct 0.07 mg/dL (0.00-0.30); Calcium,Total 9.4 mg/dL (8.5-10.1); Chloride 109 mmol/L (98-107); Creatinine, Serum 0.63 mg/dL (0.55-1.02); EST Glomerular Filtration Rate 108 mL/min (>60); Est Glom Filt Rate - Afr Amer 131 mL/min (>60); Estimated Creatinine Clearance 109.66 ml/min; Globulin 3.7 g/dL (2.2-4.2); Glucose 99 mg/dL (74-106); Lipase 286 U/L (73-393); Potassium 3.5 mmol/L (3.5-5.1); Protein, Total 8.1 g/dL (6.4-8.2); Sodium Level 141 mmol/L (136-145)
--- NOTE | 2019-06-10 17:41 | ED.VIS.GEN ---
History of Present Illness Chief Complaint: Abd Pain Detail of Chief Complaint: Severe bilateral lower abdominal pain with anorexia Informant: Patient, Significant Other Onset: Days Context: Sudden Onset Timing: Continuous, Waxes and wanes Quality: Colicky pain Location: Right and left lower quadrant Current Severity: Mild Maximum Severity: Severe Worsened by: Eating especially. Also movement and upright position Relieved by: Nothing Associated Symptoms: Nausea, loss of appetite Narrative: Patient is a 43-year-old woman who had gynecologic surgery by Dr. Luis Angel Maddox. During the procedure she had perforation of the uterus. She presents to the emergency room because of severe low pelvic/abdominal pain with vaginal bleeding. There was concern for perforation and abscess. CT of the abdomen and pelvis with IV and p.o. contrast was obtained. There was no evidence of inflammation or perforation. There was enlargement of the pancreatic duct. Patient was made aware of these findings. She states she is scheduled to see Dr. Luis Angel Maddox and Dr. Jin this week. She is scheduled to have a EGD and colonoscopy performed. She denies fever, chills night sweats. She denies dysuria, frequency, urgency or hematuria. She reports decreased bowel movement because she is not eating. She states if she eats her abdomen becomes distended and feels bloated. She is had problems with bloating for 1 year. Prior similar symptoms: Yes Recent Illness/Hospitalization: Yes - Past Medical History (1) Acid reflux Status: Acute (2) Constipation Status: Acute (3) Depression Status: Acute (4) RA (rheumatoid arthritis) Status: Acute Past Medical History - Allergies and Home Meds Allergies/Adverse Reactions: Allergies latex Allergy (Unknown, Verified 06/06/19 21:54) Unknown doxycycline Allergy (Verified 06/06/19 21:54) Other sulfamethoxazole [From Bactrim] Adverse Reaction (Verified 06/06/19 21:54) Other trimethoprim [From Bactrim] Adverse Reaction (Verified 06/06/19 21:54) Other Primary Care Physician: Silvino Herron MD [Primary Care Provider] - Prior records reviewed: Yes Surgical History: - - D&C Lives: Spouse/ Significant Other Smoking Status: Never smoker Alcohol: Rare Drugs: None Review of Systems General: Denies: Chills, Fever, Malaise, Subjective, Sweats, Weight loss, - ENT: Denies: Rhinorrhea, Sore throat Cardiovascular: Denies: Chest pain, Palpitations Respiratory: Denies: Dyspnea, Cough, Dyspnea on exertion Gastrointestinal: Reports: Abdominal pain, Nausea. Denies: Vomiting, Diarrhea, Constipation, Melena, Hematochezia Genitourinary: Denies: Dysuria, Hematuria, Frequency Musculoskeletal: Denies: Myalgias, Arthralgias, Neck pain, Back pain, Swelling, Extremity Pain Skin: Denies: Rash, Wounds Neurological: Denies: Headache, Weakness, Numbness Hematologic: Denies: Easy bruising, Easy bleeding Physical Exam Vital Signs/Narrative: Vital Signs Temp Pulse Resp BP Pulse Ox 06/10/19 16:30 98.2 F 114 H 20 H 130/81 H 98 Inital Vital Signs reviewed: Yes General: Well nourished, Well developed, Acute Distress Head: Normocephalic, Atraumatic Eyes: Perrl, EOMI. Negative for: Pale conjunctiva, Scleral icterus ENT: No rhinorrhea, TM's clear Neck: Supple, Nontender, No lymphadenopathy, No JVD Cardiovascular: Regular rhythm, No murmurs, Normal S1, Normal S2, Tachycardia Respiratory: No distress, CTA bilaterally, Chest nontender Abdomen: Soft, Nondistended, No masses, Tender, Hypoactive bowel sounds. Negative for: Normal bowel sounds, Rebound tenderness, Pulsatile mass, Ventral hernia, Umbilical hernia Back: Nontender, Normal Inspection. Negative for: CVA tenderness Extremities: Nontender, No edema Skin: Normal color, No rash Neurological: Alert, Oriented x3, Cranial nerves II-XII grossly intact, Normal Strength, Normal Sensation Psychological: Tearful Diagnostic/Tx/Re-eval Laboratory Results 06/10/19 06/10/19 17:00 17:00 WBC 5.6 RBC 4.79 Hgb 13.9 Hct 41.8 MCV 87.3 MCH 29.0 MCHC 33.3 RDW Std Deviation 40.0 RDW Coeff of Dominique 12.7 Plt Count 309 MPV 8.5 Immature Gran % (Auto) 0.200 Neut % (Auto) 52.2 Lymph % (Auto) 38.5 [place] % (Auto) 5.9 Eos % (Auto) 2.8 Baso % (Auto) 0.4 Absolute Neuts (auto) 3.0 Absolute Lymphs (auto) 2.17 Nucleated RBC % 0 Sodium 141 Potassium 3.5 Chloride 109 H Carbon Dioxide 26.0 Anion Gap 6 BUN 8 Creatinine 0.63 Estim Creat Clear Calc 109.66 Est GFR (MDRD) Af Amer 131 Est GFR (MDRD) Non-Af 108 BUN/Creatinine Ratio 12.7 Glucose 99 Calcium 9.4 Total Bilirubin 0.20 Direct Bilirubin 0.07 AST 16 ALT 41 Alkaline Phosphatase 137 H Total Protein 8.1 Albumin 4.4 Globulin 3.7 Lipase 286 Patient's work-up is again unremarkable. Will discharge with open analgesia. Is given enough medicine to get her to her upcoming appointments. - Medical Decision Making In light of patient's past medical history she was medicated with IV morphine and screening labs were obtained. CT of the abdomen was performed last week was reviewed. There was no findings to suggest uterine perforation or abscess. Differential includes abdominal pain of unknown etiology, irritable bowel syndrome, inflammatory bowel disorder, bladder spasms, and abdominal pain of unknown etiology ED Disposition - Plan for ED Patient: Disposition: Home or Assisted Living Diagnosis: Pelvic pain, Perforation of uterus Instructions: ABDOMINAL PAIN, Unknown Cause, (Female) Prescriptions: Oxycodone HCl/Acetaminophen [Percocet 5/325] 1 tab PO Q6H PRN PRN 3 Days #12 tab PRN Reason: Pain Prescription Printed Referrals: Silvino Herron MD [Primary Care Provider] - Eulalia De La Cruz MD [STAFF PHYSICIAN] - [facility] [place] appointment Luis Angel Maddox MD [STAFF PHYSICIAN] - [facility] [place] appointment
[2019-06-10 18:36] VITALS: BP 102/82; PULSE 70; RESP 14; O2SAT 97
== END 2019-06-10 18:36 | disposition home or self-care (01) ==
PROVIDERS: Emergency Provider Emergency Medicine; PCP Family Medicine
DX: R10.2 Pelvic and perineal pain (principal); K21.9 Gastro-esophageal reflux disease without esophagitis; M06.9 Rheumatoid arthritis, unspecified
CPT/HCPCS: 80048; 80076; 83690; 85025; 96374; 96375; 99283; A4216; J2405

== ENCOUNTER 2019-06-13 08:19 | Day surgery (SDC) | payer MEDICAID, SELFPAY ==
[2019-05-29 09:01] VITALS: BMI 24.4
--- NOTE | 2019-05-29 09:35 | HP_ITS ---
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 Machine Required: No Is patient in pain?: No Allergies latex Allergy (Unknown, Verified 05/29/19 09:00) Unknown doxycycline Allergy (Verified 05/29/19 09:00) Other sulfamethoxazole [From Bactrim] Adverse Reaction (Verified 05/29/19 09:00) Other trimethoprim [From Bactrim] Adverse Reaction (Verified 05/29/19 09:00) Other Medications Butalb/Acetaminophen/Caffeine [Tjswae-Srxllpip-Tjat 50-300-40] 1 tab PO DAILY 06/30/17 [History Confirmed 05/29/19] Sumatriptan Succinate 50 mg PO PRN PRN 06/30/17 [History Confirmed 05/29/19] Bupropion HCl [Wellbutrin Xl] 300 mg PO BID 10/25/18 [History Confirmed 05/29/19] Escitalopram Oxalate [Lexapro] 40 mg PO DAILY 10/25/18 [History Confirmed 05/29/19] Meloxicam [Mobic] 15 mg PO DAILY 10/25/18 [History Confirmed 05/29/19] Progesterone, Micronized [Progesterone] 400 mg PO BID 10/25/18 [History Confirmed 05/29/19] methotrexate sodium 7.5 mg tablet 7.5 mg PO QWEEK 01/19/19 [History Confirmed 05/29/19] pantoprazole 40 mg tablet,delayed release 40 mg PO DAILY #90 tab 05/29/19 [Rx Confirmed 05/29/19] sucralfate 1 gram tablet 1 g PO QACHS #120 tab 05/29/19 [Rx Confirmed 05/29/19] PFSH Medical History Hemorrhoids (Acute) Acid reflux (Acute) Blood in stool (Acute) Constipation (Acute) Nausea (Acute) Depression (Acute) RA (rheumatoid arthritis) (Acute) Fatigue (Acute) Surgical History History of (Acute) History of surgery on arm (Acute) Family History Mother Hypertension Social History (Updated 05/29/19 @ 09:35 by Eulalia De La Cruz MD) Smoking Status: Never smoker second hand exposure: No alcohol intake: current alcohol intake frequency: a few times a week substance use type: does not use caffeine: No what type of physical activity do you participate in: none frequency: does not exercise HPI HPI HPI: GUILLERMINA DOLL, is a 43 F who presents to the office today for HPI HPI Surgical H&P: Yes HPI: GUILLERMINA DOLL, is a 43 F who presents to the office today for follow-up from her abdominal pain/bloating/constipation with worsening epigastric pain to schedule EGD and colonoscopy. Patient took several weeks to relieve her constipation with multiple enemas, MiraLAX, suppositories, bottles magnesium citrate. That has improved. Patient states last 2 weeks she has been having increased abdominal pain mostly epigastric she is also been taking quite a bit of ibuprofen and Tylenol to help with this pain she still has a lot of bloating after eating she is tried Gas-X Pepto-Bismol, Mylanta and those do not seem to help. She is also tried taking the Prevacid but she only took it PRN. Patient states for a bowel movement she is now currently taking a Colace every other day and having bowel movements daily. Patient's maternal uncle did have colon cancer in his 40s to 50s. Patient has never had a colonoscopy. ROS General General: Yes weight change (Gained about 23 pounds in the last year), appetite (Decreased due to bloating with eating) and fatigue Gastro Gastrointestinal: Yes abdominal pain, Yes nausea or vomiting (Nausea no vomiting), No diarrhea, Yes constipation Exam Const General: cooperative, comfortable, no acute distress Resp Effort & Inspection: normal respiratory effort Cardio Rate: regular rate GI Inspection: non-distended Palpation: soft, no guarding, tender (Especially epigastric, mild lower abdomen, no peritoneal signs) Neuro Cranial Nerves: CN's II-XI intact bilaterally Psych Affect: normal affect Assessment & Plan Problems 1. Epigastric abdominal pain R10.13 2. Bloating symptom R14.0 3. Constipation K59.00 Plan Will have patient avoid ibuprofen, start taking Protonix 40 mg p.o. daily and also Carafate 1 g p.o. 4 times daily 1 hour prior to eating to see if this helps with her epigastric pain. I have discussed the above with the patient. I have offered the patient EGD and colonoscopy for evaluation. I have explained the risks/benefits of the procedure and described the procedure. I have discussed the risks with the patient, including but not limited to: infection, bleeding, perforation of the GI tract requiring emergency surgery, inability to complete the procedure, injury to any internal organs, complications of anesthesia, etc. - the patient understands and agrees to proceed. I have answered all the patient's questions to the patient's satisfaction and the patient has no further questions. The patient has been given instructions for the colon cleansing preparation. One day of clears/MiraLAX Dulcolax split prep Eulalia De La Cruz M.D. Pager: [phone] [facility] [address] [place] [address], [facility], [address] [place] [address] Office: [phone] Medications New: pantoprazole 40 mg PO DAILY 90 tabs 0RF sucralfate Take 1 hour before meals and at bedtime 1 g PO QACHS 120 tabs 0RF Plan Detail Follow Up We will schedule EGD and colonoscopy Coding Level of Care Code Off vis,est,level 3 Diagnoses Epigastric abdominal pain R10.13 Bloating symptom R14.0 Constipation K59.00 05/29/19 0935 <Electronically signed by Eulalia Cedeno am, MD> Date _ Eulalia De La Cruz MD I have examined the patient the following changes are noted: Patient states her epigastric pain is improved with the Protonix and Carafate but she is still having bloating. Patient states that prep went well.
--- NOTE | 2019-06-13 | GASB_PTH ---
PATIENT: GUILLERMINA DOLL LOC: EN U#:[id number] AGE/SX: 43/F ROOM: RE06/13/[address]: Dr. Eulalia De La Cruz MD : 1975 BED: DIS: 06/13/2019 SPEC #: [id number] RECD: 06/13/19 15:01 STATUS: JAYDA DALE #: [id number] ALLEY: 06/13/19 00:[address]: Eulalia De La Cruz DEPT: SURGICAL PATHOLOGY RECD BY: Donald Mckeon ENTERED: 06/13/19 15:01 SP TYPE: Gastric Bx OTHR DR: Dr. Silvino Herron MD Tissues: A - Gastric mucous membrane B - Gastric mucous membrane Procedures: Special Stain Group II Surgery Specimen Level IV Alcian Blue/PAS (control) HEADER OPERATION: Colonoscopy, EGD ([facility] [place]) PRE-OP DIAGNOSIS: Epigastric pain, bloating, constipation TISSUE SUBMITTED: A - Antrum biopsy for H. pylori and path, B - GE junction biopsy MICROSCOPIC DIAGNOSIS A. Gastric antrum, biopsy: Strips of benign superficial gastric mucosa. See comment. B. Gastroesophageal junction, biopsy: Focal changes of reflux. Junctional mucosa with mild chronic inflammation. No evidence of intestinal metaplasia. See comment. AM:nadeen 06/14/19 COMMENT A. The results of immunohistochemistry for Helicobacter pylori will be reported separately ([id number]). B. Alcian blue/PAS stain with matched control supports the above diagnosis. MICROSCOPIC DESCRIPTION Slides are reviewed. GROSS DESCRIPTION A - Received in fixative is one container labeled with the patient's name and designated antrum biopsy. The specimen consists of one irregular fragment of light stern soft tissue that measures 0.2 x 0.2 x 0.1 cm. The specimen is totally submitted in one cassette. B - Received in fixative is one container labeled with the patient's name and designated GE junction. The specimen consists of multiple irregular fragments of light stern soft tissue that in aggregate measure 0.6 x 0.3 x 0.1 cm. The specimen is totally submitted in one cassette. / AM:nadeen 06/13/19 TC:3 CPT: 22153 x2, 06011
[2019-06-13 08:43] VITALS: BP 111/92; PULSE 95; RESP 16; TEMP 37.1; O2SAT 97; BMI 23.7
[2019-06-13] MEDS: Lactated Ringers 1,000 ML 100 ML IV (08:55)
--- NOTE | 2019-06-13 09:30 | IMM_PTH ---
PATIENT: GUILLERMINA DOLL LOC: EN U#:[id number] AGE/SX: 43/F ROOM: RE06/13/[address]: Dr. Eulalia De La Cruz MD : 1975 BED: DIS: 06/13/2019 SPEC #: [id number] RECD: 06/13/19 15:31 STATUS: JAYDA REQ #: [id number] ALLEY: 06/13/19 09:[address]: Eulalia De La Cruz DEPT: IMMUNOHISTOCHEMISTRY RECD BY: Rupal Rodriguez ENTERED: 06/13/19 15:31 SP TYPE: IMMUNO OTHR DR: Dr. Silvino Herron MD Tissues: A - Stomach, NOS Procedures: H Pylori (initial) PHYSICIAN & INSTITUTION [place] [id number] SPECIMEN INFORMATION: Tissue Source: A - Antrum biopsy Clinical Info: Epigastric pain, bloating, constipation Specimen Number: [id number] CPT code: 41623 METHODOLOGY: Deparaffinized sections of prefer/formalin-fixed tissue or PAP/DQ stained slides are incubated with monoclonal/polyclonal antibodies/oligonucleotide probes. Localization is made via biotin free immunoperoxidase method. Appropriate controls are performed and reacted as expected. Results on target cell population are indicated in the following table: RESULTS: ANTIBODY / CLONE RESULT Block A H Pylori (polyclonal) negative These tests were developed and their performance characteristics determined by [facility]. They may not have been cleared or approved by the U.S. Food and Drug Administration. The FDA has determined that such clearance or approval is not necessary. INTERPRETATION: A. Antrum biopsy: Negative for Helicobacter pylori organisms. AM:nadeen 06/14/19
[2019-06-13 10:37] VITALS: BP 100/71; BP 111/92; PULSE 71; RESP 14; TEMP 36.3; O2SAT 100
--- NOTE | 2019-06-13 10:39 | OP.EGD_ITS ---
Patient Name: Fatimah Oreilly Procedure Date: 06/13/2019 9:56 AM Date of : 1975 Age: 43 Procedure: Upper GI endoscopy Indications: Epigastric abdominal pain, Abdominal bloating Providers: Eulalia De La Cruz MD Referring MD: Silvino Herron Medicines: Monitored Anesthesia Care Patient Profile: This is a 43 year old female. Complications: No immediate complications. Procedure: Pre-Anesthesia Assessment: - Prior to the procedure, a History and Physical was performed, and patient medications and allergies were reviewed. The patient's tolerance of previous anesthesia was also reviewed. The risks and benefits of the procedure and the sedation options and risks were discussed with the patient. All questions were answered, and informed consent was obtained. Prior Anticoagulants: The patient has taken no previous anticoagulant or antiplatelet agents. ASA Grade Assessment: II - A patient with mild systemic disease. After reviewing the risks and benefits, the patient was deemed in satisfactory condition to undergo the procedure. After obtaining informed consent, the endoscope was passed under direct vision. Throughout the procedure, the patient's blood pressure, pulse, and oxygen saturations were monitored continuously. The gastroscope was introduced through the mouth, and advanced to the second part of duodenum. The upper GI endoscopy was accomplished without difficulty. The patient tolerated the procedure well. Scope In: 10:07:58 AM Scope Out: 10:12:59 AM Total Procedure Duration Time 0 hours 5 minutes 1 second Findings: The Z-line was irregular and was found 40 cm from the incisors. Biopsies were taken with a cold forceps for histology. Striped mildly erythematous mucosa without bleeding was found in the gastric antrum. Biopsies were taken with a cold forceps for histology. Biopsies were taken with a cold forceps for Helicobacter pylori cultures. The examined duodenum was normal. The cardia and gastric fundus were normal on retroflexion. The exam of the esophagus was otherwise normal. Impression: - Z-line irregular, 40 cm from the incisors. Biopsied. - Erythematous mucosa in the antrum. Biopsied. - Normal examined duodenum. Recommendation: - Await pathology results. - Discharge patient to home. - Resume previous diet. - Continue present medications. Procedure Code(s): --- Professional --- 26315, Esophagogastroduodenoscopy, flexible, transoral; with biopsy, single or multiple Diagnosis Code(s): --- Professional --- K22.8, Other specified diseases of esophagus K31.89, Other diseases of stomach and duodenum R10.13, Epigastric pain R14.0, Abdominal distension (gaseous) CPT copyright 2017 [employer]. All rights reserved. The codes documented in this report are preliminary and upon disaster recovery analyst review may be revised to meet current compliance requirements. MD Eulalia Glass MD 06/13/2019 10:39:35 AM This report has been signed electronically. Number of Addenda: 0 Note Initiated On: 06/13/2019 9:56 AM
--- NOTE | 2019-06-13 10:39 | OP.CCLET_ITS ---
06/13/2019 Silvino Herron Re : Upper GI endoscopy procedure for Fatimah Oreilly Dear Gopal This procedure was performed on Thursday, June 13, 2019. My impressions and recommendations are as follows: Impressions : - Z-line irregular, 40 cm from the incisors. Biopsied. - Erythematous mucosa in the antrum. Biopsied. - Normal examined duodenum. Recommendations : - Await pathology results. - Discharge patient to home. - Resume previous diet. - Continue present medications. My findings are described in the full procedure note, which is enclosed. If I can be of further assistance, please feel free to contact me at Doctor phone number(s): , Work: . Sincerely, MD Eulalia Glass MD 06/13/2019 10:39:35 AM This report has been signed electronically.
[2019-06-13 10:40] VITALS: BP 111/92; BP 91/60; PULSE 74; RESP 14; O2SAT 100
--- NOTE | 2019-06-13 10:42 | OP.CCLET_ITS ---
06/13/2019 Silvino Herron Re : Colonoscopy procedure for Fatimah Oreilly Dear Gopal This procedure was performed on Thursday, June 13, 2019. My impressions and recommendations are as follows: Impressions : - The entire examined colon is normal on direct and retroflexion views. - No specimens collected. Recommendations : - Discharge patient to home. - Resume previous diet. - Continue present medications. - Repeat colonoscopy in 10 years for screening purposes. My findings are described in the full procedure note, which is enclosed. If I can be of further assistance, please feel free to contact me at Doctor phone number(s): , Work: . Sincerely, MD Eulalia Glass MD 06/13/2019 10:42:23 AM This report has been signed electronically.
--- NOTE | 2019-06-13 10:42 | OP.COLON_ITS ---
Patient Name: Fatimah Oreilly Procedure Date: 06/13/2019 10:13 AM Date of : 1975 Age: 43 Procedure: Colonoscopy Indications: Constipation Providers: Eulalia De La Cruz MD Referring MD: Silvino Herron Medicines: Monitored Anesthesia Care Patient Profile: This is a 43 year old female. Last Colonoscopy: none. The patient's first colonoscopy is today. Complications: No immediate complications. Procedure: Pre-Anesthesia Assessment: - Prior to the procedure, a History and Physical was performed, and patient medications and allergies were reviewed. The patient's tolerance of previous anesthesia was also reviewed. The risks and benefits of the procedure and the sedation options and risks were discussed with the patient. All questions were answered, and informed consent was obtained. Prior Anticoagulants: The patient has taken no previous anticoagulant or antiplatelet agents. ASA Grade Assessment: II - A patient with mild systemic disease. After reviewing the risks and benefits, the patient was deemed in satisfactory condition to undergo the procedure. After I obtained informed consent, the scope was passed under direct vision. Throughout the procedure, the patient's blood pressure, pulse, and oxygen saturations were monitored continuously. The colonoscope was introduced through the anus and advanced to the cecum, identified by the appendiceal orifice, ileocecal valve and palpation. The colonoscopy was performed without difficulty. The patient tolerated the procedure well. The quality of the bowel preparation was good. Scope In: 10:15:15 AM Scope Withdrawal Time 0 hours 7 minutes 53 seconds Scope Out: 10:33:49 AM Total Procedure Duration Time 0 hours 18 minutes 34 seconds Findings: The perianal and digital rectal examinations were normal. The entire examined colon appeared normal on direct and retroflexion views. Impression: - The entire examined colon is normal on direct and retroflexion views. - No specimens collected. Recommendation: - Discharge patient to home. - Resume previous diet. - Continue present medications. - Repeat colonoscopy in 10 years for screening purposes. Procedure Code(s): --- Professional --- 53061, Colonoscopy, flexible; diagnostic, including collection of specimen(s) by brushing or washing, when performed (separate procedure) Diagnosis Code(s): --- Professional --- K59.00, Constipation, unspecified CPT copyright 2017 [employer]. All rights reserved. The codes documented in this report are preliminary and upon c application developer review may be revised to meet current compliance requirements. MD Eulalia Glass MD 06/13/2019 10:42:23 AM This report has been signed electronically. Number of Addenda: 0 Note Initiated On: 06/13/2019 10:13 AM
[2019-06-13 10:45] VITALS: BP 111/92; BP 96/71; PULSE 72; RESP 16; O2SAT 100
[2019-06-13 10:53] VITALS: BP 100/76; BP 111/92; PULSE 79; RESP 16; TEMP 36.9; O2SAT 97
[2019-06-13 11:30] VITALS: BP 111/92
== END 2019-06-13 11:31 | disposition home or self-care (01) ==
LOC: EN 08:21 → AC 08:22
PROVIDERS: PCP Family Medicine; Referring Provider Family Medicine; Visit Provider Surgery
PROC: 0DJD8ZZ Inspection of Lower Intestinal Tract, Via Natural or Artificial Opening Endoscopic (ICD-10-PCS; CPT 45378; principal; 2019-06-13 09:25)
DX: K21.9 Gastro-esophageal reflux disease without esophagitis (principal); K22.8 Other specified diseases of esophagus; K31.89 Other diseases of stomach and duodenum; R10.13 Epigastric pain; R14.0 Abdominal distension (gaseous); K59.00 Constipation, unspecified; I95.9 Hypotension, unspecified; D64.89 Other specified anemias; G43.909 Migraine, unspecified, not intractable, without status migrainosus; Z87.891 Personal history of nicotine dependence
CPT/HCPCS: 43239; 45378; 88305; 88313; 88342; J7120; J2405

== ENCOUNTER → 2019-06-15 12:06 | Outpatient (CLI) | payer MEDICAID, SELFPAY ==
[2019-06-13 08:43] VITALS: BMI 23.7
--- NOTE | 2019-06-15 12:06 | MRI_ITS ---
STUDY: MR CHOLANGIOPANCREATOGRAPHY (MRCP) REASON FOR EXAM: Female, 43 years old. Prominent pancreatic duct seen on CT TECHNIQUE: Standard MRCP technique was utilized. COMPARISON: None. FINDINGS: Gall Bladder: Normal with no distention or demonstrated fixed intraluminal filling defect. Cystic duct: Normal with no demonstrated fixed filling defect. Intrahepatic ducts: Normal visualized intrahepatic ducts with no demonstrated fixed filling defect, dilation or stricture. Common hepatic duct: Focal signal loss within the mid common hepatic duct worrisome for stricture or mass. Correlation with ERCP would be useful. Common bile duct: Normal with no demonstrated fixed filling defect, dilation or stricture. Pancreatic duct: Normal with no demonstrated fixed filling defect, dilation or stricture. MRI/MRCP Abdomen without Contrast IMPRESSION: Possible stricture or mass of the mid common hepatic duct with signal loss. Correlation with ERCP would be useful. Electronically Signed: Son Beck MD at 15:35 EST Tel , Service support ,
== END ==
PROVIDERS: PCP Family Medicine; Referring Provider Surgery; Visit Provider Surgery
DX: R93.5 Abnormal findings on diagnostic imaging of other abdominal regions, including retroperitoneum (principal)
CPT/HCPCS: 74181

== ENCOUNTER 2019-06-18 06:03 | Day surgery (SDC) | payer MEDICAID, SELFPAY ==
--- NOTE | 2019-05-29 09:35 | HP_ITS ---
Intake Vital Signs 05/29/19 BMI 24.4 05/29/19 Height 5 ft 7 in 05/29/19 Weight: 158 lb 05/29/19 BMI 24.7 05/29/19 BP 128/84 H 05/29/19 Blood Pressure Location Rt brachial 05/29/19 Position Sitting 05/29/19 Respiration 18 05/29/19 Pulse 78 05/29/19 Pulse Source Monitor 05/29/19 Temp 98.2 F 05/29/19 Temp Source Oral 05/29/19 Pulse Oximetry (%) 99 05/29/19 Oxygen Delivery Method room air Intake Visit Reasons: to discuss scheduling c-scope Apparatus Operator Required: No Is patient in pain?: No Allergies latex Allergy (Unknown, Verified 05/29/19 09:00) Unknown doxycycline Allergy (Verified 05/29/19 09:00) Other sulfamethoxazole [From Bactrim] Adverse Reaction (Verified 05/29/19 09:00) Other trimethoprim [From Bactrim] Adverse Reaction (Verified 05/29/19 09:00) Other Medications Butalb/Acetaminophen/Caffeine [Aegvsu-Nhqyzwgp-Khtz 50-300-40] 1 tab PO DAILY 06/30/17 [History Confirmed 05/29/19] Sumatriptan Succinate 50 mg PO PRN PRN 06/30/17 [History Confirmed 05/29/19] Bupropion HCl [Wellbutrin Xl] 300 mg PO BID 10/25/18 [History Confirmed 05/29/19] Escitalopram Oxalate [Lexapro] 40 mg PO DAILY 10/25/18 [History Confirmed 05/29/19] Meloxicam [Mobic] 15 mg PO DAILY 10/25/18 [History Confirmed 05/29/19] Progesterone, Micronized [Progesterone] 400 mg PO BID 10/25/18 [History Confirmed 05/29/19] methotrexate sodium 7.5 mg tablet 7.5 mg PO QWEEK 01/19/19 [History Confirmed 05/29/19] pantoprazole 40 mg tablet,delayed release 40 mg PO DAILY #90 tab 05/29/19 [Rx Confirmed 05/29/19] sucralfate 1 gram tablet 1 g PO QACHS #120 tab 05/29/19 [Rx Confirmed 05/29/19] PFSH Medical History Hemorrhoids (Acute) Acid reflux (Acute) Blood in stool (Acute) Constipation (Acute) Nausea (Acute) Depression (Acute) RA (rheumatoid arthritis) (Acute) Fatigue (Acute) Surgical History History of (Acute) History of surgery on arm (Acute) Family History Mother Hypertension Social History (Updated 05/29/19 @ 09:35 by Eulalia De La Cruz MD) Smoking Status: Never smoker second hand exposure: No alcohol intake: current alcohol intake frequency: a few times a week substance use type: does not use caffeine: No what type of physical activity do you participate in: none frequency: does not exercise HPI HPI HPI: GUILLERMINA DOLL, is a 43 F who presents to the office today for HPI HPI Surgical H&P: Yes HPI: GUILLERMINA DOLL, is a 43 F who presents to the office today for follow-up from her abdominal pain/bloating/constipation with worsening epigastric pain to schedule EGD and colonoscopy. Patient took several weeks to relieve her constipation with multiple enemas, MiraLAX, suppositories, bottles magnesium citrate. That has improved. Patient states last 2 weeks she has been having increased abdominal pain mostly epigastric she is also been taking quite a bit of ibuprofen and Tylenol to help with this pain she still has a lot of bloating after eating she is tried Gas-X Pepto-Bismol, Mylanta and those do not seem to help. She is also tried taking the Prevacid but she only took it PRN. Patient states for a bowel movement she is now currently taking a Colace every other day and having bowel movements daily. Patient's maternal uncle did have colon cancer in his 40s to 50s. Patient has never had a colonoscopy. ROS General General: Yes weight change (Gained about 23 pounds in the last year), appetite (Decreased due to bloating with eating) and fatigue Gastro Gastrointestinal: Yes abdominal pain, Yes nausea or vomiting (Nausea no vomiting), No diarrhea, Yes constipation Exam Const General: cooperative, comfortable, no acute distress Resp Effort & Inspection: normal respiratory effort Cardio Rate: regular rate GI Inspection: non-distended Palpation: soft, no guarding, tender (Especially epigastric, mild lower abdomen, no peritoneal signs) Neuro Cranial Nerves: CN's II-XI intact bilaterally Psych Affect: normal affect Assessment & Plan Problems 1. Epigastric abdominal pain R10.13 2. Bloating symptom R14.0 3. Constipation K59.00 Plan Will have patient avoid ibuprofen, start taking Protonix 40 mg p.o. daily and also Carafate 1 g p.o. 4 times daily 1 hour prior to eating to see if this helps with her epigastric pain. I have discussed the above with the patient. I have offered the patient EGD and colonoscopy for evaluation. I have explained the risks/benefits of the procedure and described the procedure. I have discussed the risks with the patient, including but not limited to: infection, bleeding, perforation of the GI tract requiring emergency surgery, inability to complete the procedure, injury to any internal organs, complications of anesthesia, etc. - the patient understands and agrees to proceed. I have answered all the patient's questions to the patient's satisfaction and the patient has no further questions. The patient has been given instructions for the colon cleansing preparation. One day of clears/MiraLAX Dulcolax split prep Eulalia De La Cruz M.D. Pager: [phone] [facility] [address] [place] [address], [facility], [address] [place] [address] Office: [phone] Medications New: pantoprazole 40 mg PO DAILY 90 tabs 0RF sucralfate Take 1 hour before meals and at bedtime 1 g PO QACHS 120 tabs 0RF Plan Detail Follow Up We will schedule EGD and colonoscopy Coding Level of Care Code Off vis,est,level 3 Diagnoses Epigastric abdominal pain R10.13 Bloating symptom R14.0 Constipation K59.00 05/29/19 0935 <Electronically signed by Eulalia Cedeno am, MD> Date _ Eulalia De La Cruz MD I have examined the patient the following changes are noted: Patient states that the epigastric pain has improved with the Protonix and Carafate she is still having her bloating after eating.
--- NOTE | 2019-06-15 12:20 | EKG12_ITS ---
Test Reason : PRE-OP Blood Pressure : / mmHG Vent. Rate : 065 BPM Atrial Rate : 065 BPM P-R Int : 162 ms QRS Dur : 074 ms QT Int : 426 ms P-R-T Axes : 078 075 060 degrees QTc Int : 443 ms Sinus rhythm with Possible Premature atrial complexes with Aberrant conduction Junctional ST depression, probably normal Borderline ECG Confirmed by DOREEN SOLIS ([id number]), newspaper editor RAMOS MILLER ([id number]) on 06/15/2019 1:15:04 PM Referred By: Luis Angel Maddox Confirmed By:DOREEN SOLIS
[2019-06-15 13:54] LABS: Hematocrit 39.4 % (37-47); Hemoglobin 13.1 g/dL (12.0-15.0); Mean Corp Hgb Conc 33.2 g/dL (32-36); Mean Corpuscular Hgb 29.2 pg (27.0-32.0); Mean Corpuscular Volume 87.9 fL (81-99); Mean Platelet Vol. 9.1 fl (6.2-12.0); Platelet Count 304 K/mm3 (150-450); RBC Distribution Width CV 12.9 % (11.6-14.6); RBC Distribution Width SD 41.1 fl (35.1-43.9); Red Blood Count 4.48 M/mm3 (4.2-5.4); White Blood Count 4.3 K/mm3 (4.4-11.0)
[2019-06-15 14:01] LABS: Prothrombin Time (Protime)PT. 13.4 SECONDS (11.7-14.9)
[2019-06-15 14:12] LABS: Creatinine, Serum 0.59 mg/dL (0.55-1.02); EST Glomerular Filtration Rate 117 mL/min (>60); Est Glom Filt Rate - Afr Amer 141 mL/min (>60)
--- NOTE | 2019-06-17 14:44 | PCM.HP.BLA ---
History and Physical Date of Admission: 06/18/19 Surgical History and Physical Fatimah Oreilly, a 43 year old female 3 0 0 0 3, presents for RAVH/BSO on June 18, 2019 at 7:30. -- Severe Dysmenorrhea; Menorrhagia; Submucous Fibroids -- Put on prometrium due to back pain, cramping, and irregular period. Pt has not had a period since 02-16-18. Had a tinge of pink in March when Prometrium was bumped up to 400 due to severe back pain. Extreme low bilateral pain, bloating and general concerns. On Prometrium to control bleeding and dysmenorrhea. U/S and recent D and C showed submucous fibroid. To ER at [facility] for severe pain and nothing was helping the pain, including Morphine in the ER. Feels as tho she has to hold her abdomen to be able to walk and it is hard to stand up straight. Also bright red bleeding that eventually turned brown, admits that when she had the bleeding it temporary relieved the pain. Sharp stabbing pains that radiate through her and about bring me to my knees. Seen by Dr. De La Cruz, and Dr. Crook and studies negative except for MRCP which showed possible blocked hepatic duct. MEDICATIONS HISTORY: Patient is also takin. Imitrex 50 mg tablet, PRN 2. Fioricet 50 mg-300 mg-40 mg capsule, as needed 3. Carafate 1 gram tablet, One pill by mouth four times a day 4. Protonix 40 mg tablet,delayed release, One pill by mouth once a day ALLERGIES: seasonal, Doxycycline, Dryness?, Doxycycline, Dry skin, Bactrim, Intolerance-unknown, Latex and Swelling (localized) Infections - Chicken pox Illnesses - no serious past illnesses Accidents - no injuries of consequence Hospitalizations - see surgery L4 and L5 nerve endings burnt [Dr. Rahman] and crack in spin; Review of Systems: GENERAL - Denies fever, or chills SKIN - Denies skin changes EYES - Denies visual changes EARS - Denies difficulty hearing NOSE - Denies nasal congestion or bleeding MOUTH - Denies sore throat or difficulty swallowing NECK - Denies pain or swelling RESPIRATORY - Denies shortness of breath or wheezing CARDIOVASCULAR - Denies palpitations or chest pain GASTROINTESTINAL - Denies nausea, vomiting, diarrhea, constipation GENITOURINARY - Denies dysuria, frequency of urination, incontinence of urine MUSCULOSKELETAL - Denies joint or muscle pain NEUROLOGICAL - Denies localized numbness or weakness PSYCHIATRIC - Denies depression or anxiety ENDOCRINE - Denies heat or cold intolerance, weight loss or gain HEMATO-IMMUNOLOGIC - Denies excesive bleeding with cuts SOCIAL HISTORY: Alcohol Use - socially Smoking - used to smoke but quit Diet - balanced Diet Lifestyle - low stress lifestyle Exercise - none Seat Belt Use - always 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 MENSTRUAL HISTORY: LMP Known?- DefiniteAmount/Duration - 5-6 DAYS, Regularity - Regular, Frequency - monthly days, LMP - 05/27/19 PAST PREGNANCIES: Total Pregnancies - 3; Full Term Pregnancies - 3; Premature - 0; Abortions, Induced - 0; Abortions, Spontaneous - 0; Ectopics - 0; Multiple Births - 0; Living Children - 3 SURGICAL HISTORY: 1. , 03' ; - conmplete previa 2. skin graft Lt elbow ; Dr. Hester - Arm caught in washer 3. Tubal 03' 4. 06/01/2019 hysteroscopy, D and C ; Luis Angel Maddox M.D. PHYSICAL EXAM BP- 110/78 Sitting, Right arm, regular cuff Weight- 151.58588 lbs Height- 68.5 inch BMI:22.67 CONSTITUTIONAL - NAD, well nourished, and well developed SKIN - No rash, lesions, or ulcers HEENT - Normocephalic, PERRLA, EOMI NECK - No nodes, no nuchal rigidity and thyroid normal size and texture LYMPH NODES - Palpation of lymph nodes in neck and groins within normal limits LUNGS - CTA x2 without wheezes, crackles or rales CARDIAC - Regular rate and rhythm without rubs, murmurs, or gallops BREAST - No dominant masses, no tenderness, no axillary adenopathy, no nipple discharge, no skin changes ABDOMEN - Without hepatosplenomegaly, distention, masses, rebound, or guarding; normal bowel sounds; no hernias EXTREMITIES - No edema or calf tenderness NEUROLOGICAL - Cranial nerves II-XII grossly intact PSYCHIATRIC - A and O to time, place, person, mood and affect DETAILED PELVIC EXAM External Genitial Vagina - dry and atrophic Urethra/Urethral Meatus - non-tender Bladder - non-tender Vagina - dry and fishy odor discharge from the vagina Cervix - without cervical motion tenderness and has normal size and features without evident lesions Uterus - 5-6 cm in size, mobile and nontender Adnexa - clear without massess or tenderness ASSESSMENT/PLAN: 1. Dysmenorrhea, Polyp Of Cervix Uteri and Submucous Leiomyoma Uterus Pelvic pain has not been responsive to D and C and H/S. Given this will proceed with RAVH/BSO. Discussed RBAs and all questions answered including possibility of surgery not helping with pain she has been having and need for HRT.
[2019-06-18] VITALS (12 sets, daily range): BP systolic 97–129; BP diastolic 66–96; PULSE 72–89; RESP 16–18; TEMP 36.6–37.3; O2SAT 94–100; BMI 23.8
[2019-06-18] MEDS: Lactated Ringers 1,000 ML 100 ML IV ×3 (07:10→11:38)
--- NOTE | 2019-06-18 07:30 | HYST_PTH ---
PATIENT: GUILLERMINA DOLL LOC: [facility] U#:[id number] AGE/SX: 43/F ROOM: RE06/18/[address]: Dr. Luis Angel Maddox MD : 1975 BED: DIS: 06/19/2019 SPEC #: [id number] RECD: 06/18/19 10:55 STATUS: JAYDA REEsteban #: [id number] ALLEY: 06/18/19 07:[address]: Luis Angel Maddox DEPT: SURGICAL PATHOLOGY RECD BY: Amos Tanner ENTERED: 06/18/19 11:07 SP TYPE: HYSTERECT OTHR DR: MD Dr. Silvino Hardwick MD Tissues: Uterus, NOS Procedures: Surgery Specimen Level V HEADER OPERATION: Lap robotic hysterectomy, BSO PRE-OP DIAGNOSIS: Dysmenorrhea, polyp of cervix uteri and submucous leiomyoma uterus TISSUE SUBMITTED: Uterus, cervix, bilateral fallopian tubes and ovaries MICROSCOPIC DIAGNOSIS Uterus, hysterectomy: Cervix - focal squamous metaplasia and minimal chronic inflammation. Endometrium - late secretory endometrium with focal glandular breakdown. Myometrium - leiomyomas with degenerative change and adenomyosis. Right fallopian tube - no pathologic change. Right ovary - corpora albicantia. Left fallopian tube - no pathologic change. Left ovary - hemorrhagic corpus luteal cysts and follicular cysts. AM:nadeen 06/19/19 MICROSCOPIC DESCRIPTION Slides are reviewed. GROSS DESCRIPTION Received in fixative is one container labeled with the patient's name and designated uterus. The specimen consists of a uterus with attached cervix and attached right and left fallopian tubes and ovaries. The uterus with cervix measures 7.5 x 5.5 x 4.5 cm and weighs 66.3 gm. The ectocervix is unremarkable. The cervical os is oval in contour. The endocervical canal measures 3.3 cm in length and is grossly unremarkable. The triangular endometrial cavity measures 3.4 x 2.5 cm. The velvety, light stern endometrium measures up to 0.1 cm in thickness. The myometrium contains two light to dark stern rubbery nodules ranging in size from 1.2 to 1.5 cm. The nodules are submucosal in location and are present in the anterior wall. The myometrium without nodules measures 1.5 cm in average thickness. The right and left ovaries are similar in appearance. Both ovaries are crinkled and have a smooth, glistening external surface. The right ovary measures 2.5 x 1.6 x 1 cm. Serial sections of the right ovary do not reveal mass lesions. The adjacent fallopian tube measures 6 cm in length and 0.5 cm in average diameter and has a normal fimbriated end. No tubo-ovarian adhesions are seen. The left ovary measures 3 x 2.2 x 1.3 cm. Serial sections of the left ovary reveal multiple hemorrhagic cysts ranging in size from 0.5 to 1.2 cm in greatest dimension. The left fallopian tube measures 5 cm in length and 0.5 cm in average diameter. No tubo-ovarian adhesions are seen. Retail Warehouse Supervisor sections are submitted in 11 cassettes as follows: 1 - anterior cervix, 2 - posterior cervix, 3 & 4 - anterior uterine wall, 5 & 6 - posterior uterine wall, 7 - one myometrial nodule bisected and totally submitted, 8 - second myometrial nodule, serially sectioned and totally submitted, 9 - right fallopian tube and ovary, 10 & 11 - left fallopian tube and ovary. / AM:nadeen 06/18/19 TC:1 CPT: 07458
--- NOTE | 2019-06-18 07:50 | PCM.OPRPT ---
Report of Operation Date of Procedure: 06/18/19 Pre-Operative Diagnosis: Pelvic Pain, Submucous Fibroids, Menorrhagia Post-Operative Diagnosis: Pelvic Pain, Submucous Fibroids, Menorrhagia, Endometriosis, Adhesions Surgery/Procedure Performed:: Robotic Assisted Vaginal Hysterectomy, Bilateral Salpingo-Oophorectomy, Lysis of Adhesions Description of Surgical Findings:: 10 cm uterus with normal-appearing fallopian tubes and ovaries. Multiple inflammatory implants across uterus pelvic sidewalls tubes and ovaries suggestive of endometriosis. Dense band adhesions of uterus to anterior abdominal wall. Evidence of prior with adhesions between bladder and uterus. instrumentation manager: Lizbet Cruz instrumentation manager: Willard Guzman Type of Anesthesia:: General - Endotracheal Anesthesiologist: Lynn Jauregui Specimen's removed: Uterus and bilateral fallopian tubes and ovaries Drains: Dahl to straight drain Estimated Blood Loss (mL): Minimal Fluids Replaced: Crystalloid Description of Procedure: Surgeon: Luis Angel Maddox MD, FACOG Indication: This is a 43 year old patient who has been having problems with severe pelvic pain, menorrhagia, and submucous fibroids. Conservative measures have not been helpful. The patient has been counseled regarding the risks, benefits and alternatives of this procedure including the possibility of bleeding, infection, and injury to surrounding structures such as bowel bladder and all questions were answered. She understands that if BSO is done she will need to be on HRT for an indefinite period of time. Procedure: Pt taken to the operating room where, after induction of general anesthesia, the patient was prepped and draped in the usual sterile fashion and placed on a non-slip Huggy-u-vac device. Trendelenburg test was satisfactory. Bladder was drained of urine with a Dahl catheter which was left in place. Anterior cervix grasped and cervix was dilated to about 3-4 mm. Uterus sounded to 8 cms. 0-Vicryl suture was placed at the 3:00 and 9:00 position of the cervix. A small Advincula Hosiery Looper Uterine Manipulator was then placed in the uterus and attention was turned to the laparoscopic portion of the procedure. Ropivocaine 0.5% was injected approximately 2-3 cm superior to the umbilicus and an 8 mm robotic camera port was introduced directly with intraperitoneal placement confirmed with CO2 insufflation. 8 mm robotic side ports were introduced under direct visualization approximately 10 cm lateral and 2 cm inferior to the umbilical port. A 5 mm left upper quadrant port was introduced and airseal insufflation with CO2 was started. The above findings were noted. Robot was docked without difficulty and attention turned to the robotic portion of the procedure. Approximately 30 cc of Ropivicaine was used. Bilateral infundibulopelvic ligaments were ligated with 35 kearns bipolar coagulation to the level of the round ligament. The posterior aspect of the cervix was identified and then opened for about 1 cm using 25 watt monopolar cautery identifying the uterine manipulating device which had been placed vaginally. Bladder flap and uterine adhesions were were opened and divided to the level of the round ligaments using monopolar cautery. Progressive bites were then ligated on each side of the cervix with 35 kearns bipolar cautery to the uterine arteries. The anterior vaginal mucosa was entered and cervix circumscribed with monopolar cautery. Uterus and attached tubes and ovaries were removed through the vagina. Vaginal cuff was closed first with 0-Vicryl Karolyn stitches placed at each angle followed by closure of the mid-cuff with 0-Monocryl V-lock suture in two layers. Pelvis was copiously irrigated with saline and the right ureter was noted to peristalse. Robot was undocked, upper abdomen was examined and noted to be normal, and trocars were removed with as much gas as possible. Incisions were closed with 4-0 Monocryl subcuticular sutures and incisions covered with steri-strips. The patient tolerated the procedure well and was taken to the recovery room in satisfactory condition. Sponge, instruments and needle counts were all correct. There were no apparent complications of the surgery. Cefotan 2 gms IV was given prior to the procedure. Estimated Blood Loss: Minimal Specimen to Pathology: Uterus and bilateral fallopian tubes and ovaries Grafts/Implants Used: None - Complications None - Admit VTE Documentation VTE Present on Admission: Yes VTE Mechan Device Prophylaxis: SCD's VTE Pharm Prophylaxis ordered?: Yes
--- NOTE | 2019-06-18 07:52 | PCM.DC.VHY ---
Discharge Diet: No Restrictions Discharge Activity: Return to Normal Activity, May Not Drive - while taking narcotic pain medications., May Shower, May Take a Tub Bath May resume sexual activity in: 6-8 weeks Call your doctor if your incision/area has: Continuous Slow Oozing, Sudden Increased Bleeding, Increased Pain/ Swelling, Increased Redness, Foul Smelling Discharge Call your doctor if you observe: Fever of 101 or Higher, Inability to urinate, Inability to have a bowel movement, Using more than one pad per hour Allergies/Adverse Reactions: Allergies latex Allergy (Unknown, Verified 06/18/19 06:47) Unknown doxycycline Allergy (Verified 06/18/19 06:47) Other sulfamethoxazole [From Bactrim] Adverse Reaction (Verified 06/18/19 06:47) Other trimethoprim [From Bactrim] Adverse Reaction (Verified 06/18/19 06:47) Other Medications to take at Discharge Sumatriptan Succinate 50 mg PO PRN PRN 06/30/17 Pantoprazole Sodium 40 mg PO DAILY 06/14/19 Sucralfate 1 g PO QACHS 06/14/19 Docusate Sodium [Colace] 100 mg PO BID PRN PRN #60 cap 06/18/19 Estradiol 1 mg PO DAILY #100 tab 06/18/19 Oxycodone [Oxyir] 5 mg PO Q6H PRN PRN 7 Days #14 tablet 06/18/19 The following prescriptions were given: Docusate Sodium [Colace] 100 mg PO BID PRN PRN #60 cap PRN Reason: Constipation Transmission Status: Pending to [facility] Estradiol 1 mg PO DAILY #100 tab Transmission Status: Pending to [facility] Oxycodone [Oxyir] 5 mg PO Q6H PRN PRN 7 Days #14 tablet PRN Reason: Pain Score 6-10/10 Transmission Status: Sent to [facility] Primary Care Physician: Silvino Herron MD [Primary Care Provider] - Test Results: Test results from this visit will be discussed in further detail at your follow-up appointment, if applicable. Please Follow Up With: Luis Angel Maddox MD When: 2 to 3 weeks
[2019-06-18] MEDS: Lubricating Jelly 60 GM Tube 30 GM TOPICAL (08:00)
[2019-06-18] MEDS: Ropivacaine 0.5% 30 ML Vial (08:05)
[2019-06-18] MEDS: oxyCODONE 5 MG Tablet PO ×3 (12:26→23:04)
[2019-06-18] MEDS: Sucralfate 1 GM Tablet PO ×3 (12:26→21:54)
[2019-06-18] MEDS: Acetaminophen 500 MG Tablet 1000 MG PO (12:27)
[2019-06-18] MEDS: Pantoprazole Sodium 40 MG Tablet PO (12:27)
[2019-06-18] MEDS: Estrogens,Conj. 0.625 MG Tablet PO (12:27)
[2019-06-18] MEDS: Dextrose 5%-Lactated Ringers 1,000 ML 150 ML IV (12:34)
[2019-06-18] MEDS: HYDROmorphone 0.5 MG/0.5 ML SYRINGE IV (14:06)
[2019-06-18] MEDS: Ketorolac 30 MG/ML Syringe IV ×2 (15:58→21:54)
[2019-06-18] MEDS: HYDROmorphone 0.5 MG/0.5 ML SYRINGE 1 MG IV (17:25)
[2019-06-18] MEDS: Enoxaparin 30 MG/0.3 ML Syringe SC (17:28)
[2019-06-18] MEDS: 0.9% Saline Lock 10 ML Syringe IV (21:54)
[2019-06-18] MEDS: Docusate Sodium 100 MG Capsule PO (21:54)
[2019-06-19] MEDS: HYDROmorphone 0.5 MG/0.5 ML SYRINGE 1 MG IV (00:16)
[2019-06-19] MEDS: 0.9% Saline Lock 10 ML Syringe IV ×2 (00:16→04:10)
[2019-06-19 02:20] VITALS: BP 105/75; PULSE 67; RESP 18; TEMP 36.5; O2SAT 100
[2019-06-19] MEDS: Ketorolac 30 MG/ML Syringe IV (04:09)
[2019-06-19 06:16] LABS: Hematocrit 33.5 % (37-47); Hemoglobin 11.1 g/dL (12.0-15.0); Mean Corp Hgb Conc 33.1 g/dL (32-36); Mean Corpuscular Hgb 29.3 pg (27.0-32.0); Mean Corpuscular Volume 88.4 fL (81-99); Mean Platelet Vol. 8.8 fl (6.2-12.0); Platelet Count 224 K/mm3 (150-450); RBC Distribution Width CV 13.2 % (11.6-14.6); RBC Distribution Width SD 42.8 fl (35.1-43.9); Red Blood Count 3.79 M/mm3 (4.2-5.4); White Blood Count 5.9 K/mm3 (4.4-11.0)
[2019-06-19] MEDS: Sucralfate 1 GM Tablet PO (06:24)
[2019-06-19] MEDS: oxyCODONE 5 MG Tablet PO (06:24)
[2019-06-19 06:39] LABS: Creatinine, Serum 0.62 mg/dL (0.55-1.02); EST Glomerular Filtration Rate 110 mL/min (>60); Est Glom Filt Rate - Afr Amer 133 mL/min (>60); Estimated Creatinine Clearance 111.43 ml/min
--- NOTE | 2019-06-19 07:19 | PCM.PN.OB ---
Subjective: Patient without complaints. Tolerating diet well. Positive flatus. Pain controlled and less than yesterday. Minimal vaginal bleeding. Objective: Wounds are CDI. Good urine output. Hemoglobin and creatinine okay. - Physical Exam Vitals/I&O's: Vital Signs Temp Pulse Resp BP Pulse Ox 97.7 F L 67 18 105/75 100 06/19/19 02:20 06/19/19 02:20 06/19/19 02:20 06/19/19 02:20 06/19/19 02:20 Oxygen Delivery Method Room Air Weight: 152 lb 8.958 oz Body Mass Index (BMI) 23.8 Intake and Output for Last 24 Hours 06/17/19 06/18/19 06/19/19 23:59 23:59 23:59 Intake Total 4276.67 / 4276.67 Output Total 3000 / 3000 1200 / 1200 Balance 1276.67 / 1276.67 -1200 / -1200 Laboratory Results 06/19/19 06:00: WBC 5.9, RBC 3.79 L, Hgb 11.1 L, Hct 33.5 L, MCV 88.4, MCH 29.3, MCHC 33.1, RDW Std Deviation 42.8, RDW Coeff of Dominique 13.2, Plt Count 224, MPV 8.8 06/19/19 06:00: Creatinine 0.62, Estim Creat Clear Calc 111.43, Est GFR (MDRD) Af Amer 133, Est GFR (MDRD) Non-Af 110 Current Medications Acetaminophen (Tylenol) 1,000 mg PO Q8H PRN PRN PRN Reason: Pain Score 1-3/10 or Fever Last Admin: 06/18/19 12:27 Dose: 1,000 mg Documented by: Docusate Sodium (Colace) 100 mg PO BID PRN PRN PRN Reason: Constipation Last Admin: 06/18/19 21:54 Dose: 100 mg Documented by: Estrogens Conjugated (Premarin) 0.625 mg PO DAILY MERRITT Last Admin: 06/18/19 12:27 Dose: 0.625 mg Documented by: Hydromorphone HCl (Dilaudid Inj) 1 mg IV Q3H PRN PRN PRN Reason: Pain Score 6-10/10 Last Admin: 06/19/19 00:16 Dose: 1 mg Documented by: Sodium Chloride () 250 mls @ 15 mls/hr IV .[id number] PRN PRN Reason: Saline Flush Ketorolac Tromethamine (Toradol (Bkc)) 30 mg IV Q6H [facility] Stop: 06/23/19 16:01 Last Admin: 06/19/19 04:09 Dose: 30 mg Documented by: Ondansetron HCl (Zofran) 4 mg IV Q4H PRN PRN PRN Reason: NAUSEA Oxycodone HCl (Oxyir) 5 mg PO Q4H PRN PRN PRN Reason: Pain Score 4-10/10 Last Admin: 06/19/19 06:24 Dose: 5 mg Documented by: Pantoprazole Sodium (Protonix) 40 mg PO DAILY [facility] Last Admin: 06/18/19 12:27 Dose: 40 mg Documented by: Rizatriptan Benzoate (Maxalt) 10 mg PO X1 PRN PRN Reason: MIGRAINE SYMPTOMS Simethicone (Mylicon) 80 mg PO [facility] Last Admin: 06/18/19 21:54 Dose: 80 mg Documented by: Sodium Chloride () 10 - 40 ml IV UD PRN PRN Reason: SALINE FLUSH Last Admin: 06/19/19 04:10 Dose: 20 ml Documented by: Sucralfate (Carafate) 1 gm PO 1HR_ACHS [facility] Last Admin: 06/19/19 06:24 Dose: 1 gm Documented by: Medical Necessity - Tobacco Use Smoking Status: Former smoker Assessment/Plan All Active Problems (Last Reviewed 05/29/19 @ 08:59 by Brynn Booker) History of (Acute) History of surgery on arm (Acute) Hemorrhoids (Acute) Acid reflux (Acute) Blood in stool (Acute) Constipation (Acute) Nausea (Acute) Depression (Acute) RA (rheumatoid arthritis) (Acute) Fatigue (Acute) Doing well postoperative day #1 status post robotic assisted vaginal hysterectomy and bilateral salpingo-oophorectomy. Will release to home with routine instructions.
[2019-06-19 07:47] VITALS: O2SAT 93
[2019-06-19 07:56] VITALS: BP 110/75; PULSE 85; RESP 18; TEMP 36.6; O2SAT 100
== END 2019-06-19 07:53 | disposition home or self-care (01) ==
LOC: SDC 06:03 → AC 06:04 → MS3 06-19 11:20
PROVIDERS: PCP Family Medicine; Referring Provider Obstetrics & Gynecology; Visit Provider Obstetrics & Gynecology
PROC: 0UT94ZZ Resection of Uterus, Percutaneous Endoscopic Approach (ICD-10-PCS; CPT 49329; principal; 2019-06-18 07:10)
DX: D25.0 Submucous leiomyoma of uterus (principal); N92.0 Excessive and frequent menstruation with regular cycle; N94.6 Dysmenorrhea, unspecified; N83.12 Corpus luteum cyst of left ovary; N83.02 Follicular cyst of left ovary; N83.291 Other ovarian cyst, right side; N80.0 Endometriosis of uterus; N87.9 Dysplasia of cervix uteri, unspecified; D64.9 Anemia, unspecified; K21.9 Gastro-esophageal reflux disease without esophagitis; K59.00 Constipation, unspecified; G43.909 Migraine, unspecified, not intractable, without status migrainosus; M06.9 Rheumatoid arthritis, unspecified; Z87.891 Personal history of nicotine dependence; Z79.1 Long term (current) use of non-steroidal anti-inflammatories (NSAID)
CPT/HCPCS: 00840; 49329; 58552; S2900; 36415; 82565; 85027; 85610; 85730; 86850; 86900; 86901; 88307; 93005; 99251; J7120; A4216; G0463; J2405

== ENCOUNTER 2019-06-25 18:58 | Emergency (ER) | payer MEDICAID, SELFPAY ==
[2019-06-18 12:11] VITALS: BMI 23.8
[2019-06-25 19:00] VITALS: BP 150/98; PULSE 68; RESP 20; TEMP 36.4; O2SAT 96; BMI 23.7
[2019-06-25] MEDS: 0.9% Normal Saline 1,000 ML 1000 ML IV (19:38)
[2019-06-25] MEDS: Ondansetron 4 MG/2 ML Vial IV ×2 (19:38→20:56)
[2019-06-25] MEDS: Morphine 4 MG/ML Syringe IV ×2 (19:39→20:57)
[2019-06-25 19:40] VITALS: RESP 16
[2019-06-25 19:44] LABS: Absolute Lymphocyte Count 1.46 X10^3/uL (0.83-4.51); Absolute Neutrophil Count 6.7 X10^3/uL (2.0-7.7); Basophil# 0.02 X10^3/uL; Basophil% 0.2 % (0-1); Eosinophil# 0.16 X10^3/uL; Eosinophils% 1.8 % (0-5); Hematocrit 37.9 % (37-47); Hemoglobin 12.6 g/dL (12.0-15.0); Lymphocyte # 1.46 X10^3/ul (4.0); Lymphocyte % 16.3 % (19-41); Mean Corp Hgb Conc 33.2 g/dL (32-36); Mean Corpuscular Hgb 29.3 pg (27.0-32.0); Mean Corpuscular Volume 88.1 fL (81-99); Mean Platelet Vol. 8.6 fl (6.2-12.0); Monocyte# 0.59 X10^3/uL; Monocyte% 6.6 % (0-10); NRBC Flagged by Analyzer 0 % (0-5); Neutrophil # 6.68 X10^3/uL (2.7-7.7); Neutrophil % 74.7 % (47-70); Platelet Count 323 K/mm3 (150-450); RBC Distribution Width CV 13.2 % (11.6-14.6); RBC Distribution Width SD 42.3 fl (35.1-43.9)
--- NOTE | 2019-06-25 19:45 | RAD_ITS ---
STUDY: X-RAY - ACUTE ABDOMINAL SERIES REASON FOR EXAM: Female, 43 years old. ERCP done today outside hospital. Abdominal pain nausea and vomiting. TECHNIQUE: Single view of the chest. Supine, and erect view(s) of the abdomen were obtained. COMPARISON: Abdomen, January 19, 2019. FINDINGS: The lungs are clear and expanded. Normal size heart. Normal mediastinum and zayra. Normal visualized pulmonary arteries. Normal visualized aortic arch and descending thoracic aorta. There is a non-specific bowel gas pattern. Contrast is seen within the mildly distended gallbladder. There is no filling defect. The soft tissue structures of the abdomen and pelvis are unremarkable. There are no osseous changes. RAD/Acute Abdomen Inc Chest IMPRESSION: 1. Contrast within the gallbladder. There is no evidence of acute intra-abdominal process. 2. No acute cardiopulmonary disease. Electronically Signed: Alfonzo Kwan DO at 20:11 EST Tel [phone], Service support ,
[2019-06-25 20:00] LABS: AST(SGOT) 93 U/L (15-37); Alanine Aminotransfer ALT/SGPT 92 U/L (13-56); Albumin, Serum 3.9 g/dL (3.2-5.0); Alkaline Phosphatase 184 U/L (45-117); Anion Gap 6 (5-15); BUN 9 mg/dL (7-18); BUN/Creat Ratio 12.6 RATIO (10-20); Calcium,Total 8.9 mg/dL (8.5-10.1); Chloride 109 mmol/L (98-107); Creatinine, Serum 0.71 mg/dL (0.55-1.02); EST Glomerular Filtration Rate 94 mL/min (>60); Est Glom Filt Rate - Afr Amer 114 mL/min (>60); Globulin 3.8 g/dL (2.2-4.2); Glucose 112 mg/dL (74-106); Lipase 259 U/L (73-393); Potassium 3.4 mmol/L (3.5-5.1); Protein, Total 7.7 g/dL (6.4-8.2); Sodium Level 143 mmol/L (136-145)
--- NOTE | 2019-06-25 21:37 | CT_ITS ---
STUDY: CT ABDOMEN AND PELVIS WITHOUT CONTRAST REASON FOR EXAM: Female, 43 years old. ERCP TODAY, NOW HAS SEVERE ABD PAIN, N/V. Prior hysterectomy and hemorrhoid surgery RADIATION DOSAGE (If Supplied By Facility): CTDIvol = ( 6.93 ) mGy, DLP = ( 344.58 ) mGycm TECHNIQUE: Transaxial images were obtained from the dome of the diaphragm to the symphysis pubis without oral contrast, and without intravenous contrast. Sagittal and coronal images were reconstructed. Individualized dose optimization techniques were used for this CT. COMPARISON: None. FINDINGS: The visualized lung bases are unremarkable. The visualized portions of the heart are within normal limits. Normal liver. The gallbladder is markedly dense and is filled with contrast. The patient is status post ERCP. The common bile duct is opacified measuring about 11 mm in caliber. There is no demonstrated definite filling defect. The cystic duct is visualized but difficult to accurately evaluate. There is minimal contrast in the intrahepatic biliary ducts. Normal spleen. Normal pancreas. Normal bilateral adrenal glands. Normal right kidney. Normal left kidney. Normal visualized stomach. Normal small intestine. Normal colon. The appendix is visualized and appears normal. There are minimal calcifications in the abdominal aorta. Normal inferior vena cava. Normal retroperitoneum. Normal urinary bladder. There is a small umbilical hernia containing fat. Normal osseous structures. CT/Abdomen/Pelvis without Cont IMPRESSION: 1. Distended contrast-filled gallbladder. 2. Dilated contrast-filled common bile duct without definite filling defect. 3. Otherwise no demonstrated acute process. Electronically Signed: Jaime Shaw MD at 22:11 EST Tel , Service support ,
[2019-06-25 22:05] VITALS: PULSE 64; RESP 16; O2SAT 97
--- NOTE | 2019-06-25 22:25 | ED.DCSUM_ITS ---
- ER Visit Summary Date of Service: 06/25/19 Chief Complaint: Abdominal pain History of Present Illness: The patient is a 43 F who presents with right upper quadrant and epigastric abdominal pain that began today. Patient had an ERCP done today. Patient states that while she was driving home after her ERCP she developed pain in the epigastric and right upper quadrant areas. Patient describes the pain is sharp and aching. Patient did have some nausea and vomiting. Patient denies any diarrhea. Patient denies any hematemesis or coffee-ground emesis. Patient denies any melena or hematochezia. Patient denies any dysuria or hematuria. Patient admits to subjective fevers and sweats. Physical Examination: Vital signs are stable. Patient is afebrile. Patient is in no acute distress. Oral mucosa is pink and moist. Neck is supple. Trachea is midline. There is no JVD. Heart was regular rate and rhythm. Lungs are clear and equal bilaterally. Abdomen is soft. Bowel sounds are normal. There is epigastric and right upper quadrant tenderness. There is no rebound or guarding noted. Cranial nerves II through XII are intact. There are no focal motor or sensory deficits noted. Test Results: CBC and comprehensive metabolic profile were within normal limits. Lipase was normal. Acute abdominal x-rays were obtained. There is no perforation noted or free air. There is contrast in the gallbladder. CT scan of the abdomen pelvis was obtained. There is a contrast-filled gallbladder. The common bile duct is opacified. There is no filling defect. These were interpreted by the radiologist and myself. Emergency Department Course and Treatment: Patient was given IV fluids, morphine, and Zofran here. Patient was still having pain on reevaluation. Patient was given a repeat dose of morphine and Zofran. Patient was feeling better after this. Patient was instructed to follow-up with her primary care physician in 5 to 7 days. Patient understood and was agreeable with the plan. All questions were answered. Disposition: Discharge home Impression: Postoperative abdominal pain This note was generated with [employer] dictation software. It may contain incorrect words, spelling, and punctuation that were not noted in review of the chart prior to signing ED Disposition - Plan for ED Patient: Disposition: Home or Assisted Living Diagnosis: Acute abdominal pain in right upper quadrant Instructions: ABDOMINAL PAIN, Unknown Cause, (Female) Referrals: Silvino Herron MD [Primary Care Provider] - 3-5 Days
[2019-06-25 22:41] VITALS: BP 104/81; PULSE 75; RESP 18; O2SAT 99
== END 2019-06-25 22:50 | disposition home or self-care (01) ==
PROVIDERS: Emergency Provider Emergency Medicine; PCP Family Medicine
DX: R10.11 Right upper quadrant pain (principal); R10.13 Epigastric pain; G89.18 Other acute postprocedural pain; R11.2 Nausea with vomiting, unspecified
CPT/HCPCS: 74022; 74176; 80053; 83690; 85025; 96361; 96374; 96375; 96376; 99284; J7030; A4216; J2405

== ENCOUNTER → 2020-08-01 13:42 | Outpatient (CLI) | payer MEDICAID, SELFPAY ==
[2020-08-01 14:59] LABS: Thyroid Stim Hormone (TSH) 1.41 uIU/mL (0.358-3.74)
== END ==
PROVIDERS: PCP Family Medicine; Visit Provider Obstetrics & Gynecology
DX: R94.6 Abnormal results of thyroid function studies (principal)
CPT/HCPCS: 36415; 84443

== ENCOUNTER → 2022-03-19 | Outpatient (CLI) | payer BC, SELFPAY ==
[2022-03-19 10:42] LABS: Hemoglobin A1c 5.1 % (3.8-5.6)
[2022-03-19 11:40] LABS: Cholesterol 258 mg/dL (200); High Density Lipoprotein 83 mg/dL; Triglycerides 96 mg/dL; Very Low Density Lipoprotein 19 mg/dL (5-40)
== END | disposition home or self-care (01) ==
PROVIDERS: PCP Family Medicine; Visit Provider Obstetrics & Gynecology
DX: Z13.1 Encounter for screening for diabetes mellitus (principal); Z13.220 Encounter for screening for lipoid disorders
CPT/HCPCS: 36415; 80061; 83036

== ENCOUNTER → 2022-07-08 | Outpatient (CLI) | payer BC, SELFPAY ==
--- NOTE | 2022-07-08 08:43 | US_ITS ---
STUDY: ULTRASOUND BREAST - RIGHT REASON FOR EXAM: Female, 46 years old. Pain in the right breast. TECHNIQUE: Axial and longitudinal images of the RIGHT breast were performed with a high resolution ultrasound transducer. # OF IMAGES: 118 COMPARISON: None. FINDINGS: RIGHT Breast: The 4 quadrants of the right breast was examined with ultrasound. The axillary region was examined as well. No sonographic abnormality is seen. IMPRESSION: No sonographic abnormality is seen. ASSESSMENT CATEGORY: BIRADS Category 1: Negative. A letter regarding these results will be sent to the patient by the facility within 30 days. Electronically Signed: Brian Mujica MD at 10:24 EST , STUDY: ULTRASOUND BREAST - LEFT REASON FOR EXAM: Female, 46 years old. Pain in the left breast. TECHNIQUE: Axial and longitudinal images of the LEFT breast were performed with a high resolution ultrasound transducer. # OF IMAGES: 118 COMPARISON: None. FINDINGS: LEFT Breast: All 4 quadrants of the left breast including the axilla were examined. No sonographic abnormality is seen. US/Breast Complete Bilateral IMPRESSION: No sonographic abnormality is seen. ASSESSMENT CATEGORY: BIRADS Category 1: Negative. A letter regarding these results will be sent to the patient by the facility within 30 days. Electronically Signed: Brian Mujica MD at 10:25 EST ,
== END | disposition home or self-care (01) ==
PROVIDERS: PCP Family Medicine; Referring Provider Obstetrics & Gynecology; Visit Provider Obstetrics & Gynecology
DX: N64.4 Mastodynia (principal)
CPT/HCPCS: 76641

== ENCOUNTER → 2022-07-23 | Outpatient (CLI) | payer BC, SELFPAY ==
[2022-07-23 15:01] LABS: Absolute Lymphocyte Count 1.04 X10^3/uL (0.83-4.51); Absolute Neutrophil Count 1.5 X10^3/uL (2.0-7.7); Basophil# 0.02 X10^3/uL; Basophil% 0.7 % (0-1); Eosinophil# 0.06 X10^3/uL; Eosinophils% 2.2 % (0-5); Hematocrit 35.5 % (37-47); Hemoglobin 12.2 g/dL (12.0-15.0); Lymphocyte # 1.04 X10^3/ul (0.83-4.51); Lymphocyte % 37.3 % (19-41); Mean Corp Hgb Conc 34.4 g/dL (32-36); Mean Corpuscular Hgb 31.9 pg (27.0-32.0); Mean Corpuscular Volume 92.7 fL (81-99); Mean Platelet Vol. 9.1 fl (6.2-12.0); Monocyte# 0.19 X10^3/uL; Monocyte% 6.8 % (0-10); NRBC Flagged by Analyzer 0 % (0-5); Neutrophil # 1.48 X10^3/uL (2.7-7.7); Platelet Count 245 K/mm3 (150-450); RBC Distribution Width SD 44.1 fl (35.1-43.9); Red Blood Count 3.83 M/mm3 (4.2-5.4); White Blood Count 2.8 K/mm3 (4.4-11.0)
[2022-07-23 15:55] LABS: hCG Titer Quant., Serum < 1 mIU/mL (1-3)
[2022-07-23 17:56] LABS: AST(SGOT) 29 U/L (15-37); Alanine Aminotransfer ALT/SGPT 29 U/L (13-56); Albumin, Serum 3.8 g/dL (3.2-5.0); Alkaline Phosphatase 91 U/L (45-117); Anion Gap 7 (5-15); BUN 10 mg/dL (7-18); BUN/Creat Ratio 17.6 RATIO (10-20); Calcium,Total 8.7 mg/dL (8.5-10.1); Chloride 105 mmol/L (98-107); Creatinine, Serum 0.57 mg/dL (0.55-1.02); EST Glomerular Filtration Rate 121 mL/min (>60); Est Glom Filt Rate - Afr Amer 146 mL/min (>60); Estradiol 196.8 pg/mL; Follicle Stimulating Hormone 26.8 mIU/mL; Globulin 3.8 g/dL (2.2-4.2); Glucose 89 mg/dL (74-106); Luteinizing Hormone 22.6 mIU/mL; Potassium 3.6 mmol/L (3.5-5.1); Prolactin 3.9 ng/mL; Protein, Total 7.6 g/dL (6.4-8.2); Sodium Level 138 mmol/L (136-145); T4 Free Direct 0.92 ng/dL (0.76-1.46)
[2022-07-30 22:07] LABS: Testosterone, % Free 0.79 % (0.50-2.80); Testosterone, Total 38 ng/dL (4-50)
== END | disposition home or self-care (01) ==
LOC: WOBLAB 14:11
PROVIDERS: Visit Provider Obstetrics & Gynecology
DX: N64.4 Mastodynia (principal)
CPT/HCPCS: 36415; 80053; 82627; 82670; 83001; 83002; 84146; 84402; 84403; 84439; 84702; 85025; 82626